=== PATIENT | male | born 1955 | race Caucasian/White ===

== ENCOUNTER → 2023-07-23 06:40 | Outpatient (REF) | payer BC, SELFPAY | LOC: RAD 06:40 | PROVIDERS: ATTENDING PHYSICIAN Internal Medicine Critical Care Medicine; FAMILY PHYSICIAN Family Medicine | DX: J84.9 Interstitial pulmonary disease, unspecified (principal); R91.1 Solitary pulmonary nodule; J44.9 Chronic obstructive pulmonary disease, unspecified | CPT/HCPCS: 71250 ==

== ENCOUNTER → 2023-08-13 07:10 | Outpatient (REF) | payer BC, SELFPAY | LOC: RAD 07:10 | PROVIDERS: ATTENDING PHYSICIAN Family Medicine | DX: Z13.6 Encounter for screening for cardiovascular disorders (principal) | CPT/HCPCS: 76770 ==

== ENCOUNTER → 2023-09-03 07:43 | Outpatient (REF) | payer BC, SELFPAY | LOC: RAD 07:43 | PROVIDERS: ATTENDING PHYSICIAN Internal Medicine Interventional Cardiology | DX: R07.89 Other chest pain (principal) | CPT/HCPCS: 75574; Q9967 ==

== ENCOUNTER 2023-09-12 06:11 | Day surgery (SDC) | payer BC, SELFPAY ==
[2023-09-11 10:06] VITALS: BMI 30.9
[2023-09-11 10:25] LABS: Hematocrit 37.3 % (39.0-52.0); Hemoglobin 11.7 g/dL (13.0-18.0); Mean Corp Hgb Conc. 31.4 g/dL (33.0-37.0); Mean Corpuscular Hgb 25.1 pg (27.0-31.0); Mean Corpuscular Volume 79.9 fL (80.0-94.0); Mean Platelet Volume 10.1 fL (7.4-10.4); Platelet Count 228 10^3/uL (130-400); Red Blood Cell Count 4.67 10^6/uL (4.70-6.10); Red Cell Dist. Width 16.9 % (11.5-14.5); White Blood Cell Count 11.5 10^3/uL (4.8-10.8)
[2023-09-11 10:52] LABS: INR 0.95; PT 12.7 Sec (11.4-14.6)
[2023-09-11 10:53] LABS: APTT 28.1 Sec (23.4-35.0)
[2023-09-11 11:28] LABS: Blood Urea Nitrogen 15 mg/dl (9-20); Calcium 8.7 mg/dl (8.4-10.2); Carbon Dioxide 21 mmol/L (22-30); Chloride 108 mmol/L (98-107); Estimated Creatinine Clearance > 125 ml/min; Glucose 180 mg/dl (70-99); Potassium 4.3 mmol/L (3.5-5.1); Sodium 139 mmol/L (135-145); eGFR > 60.00
[2023-09-12] VITALS (10 sets, daily range): BP systolic 109–131; BP diastolic 59–76; BMI 30.8; BMI 30.9
[2023-09-12 07:51] LABS: Glucose - Point of Care 198 mg/dl (70-99)
[2023-09-12 09:20] LABS: Glucose - Point of Care 196 mg/dl (70-99)
== END 2023-09-12 11:20 | disposition home or self-care (01) ==
LOC: GI 06:11
PROVIDERS: ATTENDING PHYSICIAN Internal Medicine Critical Care Medicine; FAMILY PHYSICIAN Family Medicine; OTHER PHYSICIAN Internal Medicine Interventional Cardiology
DX: C34.11 Malignant neoplasm of upper lobe, right bronchus or lung (principal); R91.8 Other nonspecific abnormal finding of lung field; R91.1 Solitary pulmonary nodule
CPT/HCPCS: 31629; 31627; 31623; 31624; 31654; 31899; 88172; 88173; 88305; 36415; 71045; 76000; 80048; 82962; 85027; 85610; 85730; 88112; 88333; 88341; 88342; 94640; C1887

== ENCOUNTER → 2023-10-01 11:04 | Outpatient (REF) | payer BC, SELFPAY | LOC: MRI 3T 11:04 | PROVIDERS: ATTENDING PHYSICIAN Internal Medicine Critical Care Medicine; FAMILY PHYSICIAN Family Medicine; REFERRING PHYSICIAN Internal Medicine Hematology & Oncology | DX: C80.1 Malignant (primary) neoplasm, unspecified (principal) | CPT/HCPCS: 70553; A9575 ==

== ENCOUNTER → 2023-10-17 08:22 | Outpatient (REF) | payer BC, MEDICARE, OTHER, SELFPAY ==
[2023-10-17 08:38] VITALS: BP 133/71; BP_SYST 82
[2023-10-17 08:51] LABS: Glucose - Point of Care 204 mg/dl (70-99)
[2023-10-17] MEDS: ANCEF 10 IV (09:35)
[2023-10-17 10:25] VITALS: BP 112/69; BP_SYST 76
[2023-10-17 10:40] VITALS: BP 109/64; BP_SYST 75
== END ==
LOC: RADI 08:22
PROVIDERS: ATTENDING PHYSICIAN Internal Medicine Hematology & Oncology; FAMILY PHYSICIAN Family Medicine
DX: C34.11 Malignant neoplasm of upper lobe, right bronchus or lung (principal)
CPT/HCPCS: 36561; 76937; 77001; 82962; 99152; 99153; C1788

== ENCOUNTER → 2023-10-21 13:42 | Outpatient (REF) | payer BC, MEDICARE, OTHER, SELFPAY ==
[2023-10-21 09:53] LABS: % Basophils 0.3 % (0-2); % Eosinophils 1.7 % (0-6); % Immature Granulocytes 0.7 % (0-0.5); % Lymphocytes 22.2 % (20.5-51.1); % Neutrophils 68.1 % (42.2-75.2); Absolute Eosinophils 0.2 10^3/uL (0-0.7); Absolute Immature Granulocytes 0.1 10^3/uL (0-0.05); Absolute Lymphocytes 1.9 10^3/uL (1.2-3.4); Absolute Monocytes 0.6 10^3/uL (0.1-0.6); Absolute Neutrophils 5.9 10^3/uL (1.4-6.5); Hemoglobin 11.5 g/dL (13.0-18.0); Mean Corp Hgb Conc. 31.9 g/dL (33.0-37.0); Mean Corpuscular Hgb 25.9 pg (27.0-31.0); Mean Corpuscular Volume 81.1 fL (80.0-94.0); Platelet Count 216 10^3/uL (130-400); Red Blood Cell Count 4.44 10^6/uL (4.70-6.10); Red Cell Dist. Width 16.8 % (11.5-14.5); White Blood Cell Count 8.6 10^3/uL (4.8-10.8)
[2023-10-21 10:36] LABS: ALT (SGPT) 16 U/L (0-50); AST (SGOT) 19 U/L (17-59); Albumin 3.9 g/dl (3.5-5.0); Alkaline Phosphatase 63 U/L (38-126); Blood Urea Nitrogen 14 mg/dl (9-20); Calcium 8.2 mg/dl (8.4-10.2); Carbon Dioxide 24 mmol/L (22-30); Chloride 106 mmol/L (98-107); Glucose 245 mg/dl (70-99); Potassium 4.2 mmol/L (3.5-5.1); Sodium 142 mmol/L (135-145); Total Protein 6.7 g/dl (6.3-8.2); eGFR > 60.00
== END ==
LOC: OIDL 13:42
PROVIDERS: ATTENDING PHYSICIAN Internal Medicine Hematology & Oncology
DX: C34.11 Malignant neoplasm of upper lobe, right bronchus or lung (principal)
CPT/HCPCS: 80053; 85025

== ENCOUNTER 2023-11-10 20:41 | Inpatient (IN) | payer BC, MEDICARE, SELFPAY ==
[2023-11-10 14:17] VITALS: BP 134/76
--- NOTE | 2023-11-10 16:47 | ED.GENMED ---
History of Present Illness
General
Chief Complaint: Abnormal Lab Value
Source: patient
Exam Limitations: none
Time Seen by Provider: 11/10/23 16:28
Nursing documentation reviewed up to this point in time: agreed with
History of Present Illness
History of Present Illness:
Patient to ED due to abnormal labs. Had outpatient labs this AM. Calcium 6.2, creat 2.0. Currently receiving chemo and radiation for lung CA diagnosed 08/09. Follows with Dr. Duffy. Last chemo was 2-3 weeks ago. Reports recent muscle spasms to
neck and right arm. No other complaints. Brought to ED by friend for eval.
Past History
Past History
ED Past Medical History: CVA (thyroid, lung), HTN, Hypercholesterolemia and NIDDM
Social History
Tobacco: Smoker
Alcohol: Occasional
Personal: Single
Review of Systems
Review of Systems
Allergies reviewed?: Yes
All Other Systems: ROS reviewed and negative except as documented in HPI and ROS
Constitutional: Reports no symptoms
EENT: Reports no symptoms
Respiratory: Reports no symptoms
Cardiac: Reports no symptoms
ABD/GI: Reports no symptoms
: Reports no symptoms
Musculoskeletal: Reports other (muscle spasms to back, right arm)
Skin: Reports no symptoms
Neurological: Reports no symptoms
Psychiatric: Reports no symptoms
Phy Exam
General Physical Exam
General Presentation: well appearing and no apparent distress
General age: appears stated age
General Skin: warm and dry
General Habitus: normal
General Mental: alert
Cardiovascular Exam
Cardiovascular Exam: regular rate/rhythm
Musculoskeletal Exam
Musculoskeletal Exam: full ROM and neuro vasc intact
Skin Exam
Skin Exam: normal color, warm/dry and no rash
Psychiatric Exam
Psychiatric Exam: normal mood/affect
Course
Orders/Labs/Results
Orders:
Orders
11/10/23 Breakfast
Cholesterol Lowering
At Your Request: Full Participation
Does patient need a safe tray?: No
Cholesterol Lowering: Sodium, 2 Gram
11/10/23 16:42
Add On- LAB Urgent
Tests Added?: magnesium
11/10/23 16:43
Bladder Scan- Treatment ONCE
0.9% Sodium Chloride 1000 ml [Nss] 1,000 ml IV BOLUS
11/10/23 16:49
Renal Only US [US Renal Only W/O Bladder] Urgent
Comment:
Reason For Exam: MEHREEN
11/10/23 16:51
Electrocardiogram (*1) Urgent
Reason for Study: Other
Other Reason for Exam: hypocalcemia
EKG- Treatment ONCE
11/10/23 17:00
Calcium Gluconate 2 gram/100mL [Calcium Gluconate] 2 gram in 100 ml IV ONCE
11/10/23 20:05
Admit/Transfer Patient As Directed
Co-Sign Provider:
Level of Care: Inpatient admission
Assign to:: Telemetry
Physician / Group: [email or web address]
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
Reason for Telemetry: Other
Other Reason for Telemetry: hypocalcemia
Date to Stop Telemetry: 11/12/23
Time to Stop Telemetry: 11:00
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
Expected length of stay greater than two midnights?: Yes
ELOS- Estimated Length of Stay in days: 3
I certify the patient meets the requirements for IP care: Yes
11/10/23 20:12
Code Status As Directed
Resuscitation Status: Full Code
11/10/23 21:59
0.9% Sodium Chloride 1000 ml [Nss] 1,000 ml IV 80 mls/hr
Bisacodyl [Dulcolax] 10 mg RECTAL [id number] PRN
Docusate W/Senna [Senokot-S] 1 tablet PO BIDPRN PRN
Polyethylene Glycol Powder [Miralax] 17 grams PO DAILYPRN PRN
11/10/23 21:59
Activity As Directed
Activity Level: With Assistance
Intake/ Output As Directed
Frequency: Per unit guidelines
Vital Signs As Directed
Frequency: Per unit guidelines
Weight As Directed
Frequency: Daily
Physical Therapy Consult [Pt Eval And Treat] Routine
Activity Level: With Assistance
DX Deep Vein Thrombosis Video Routine
11/11/23 06:00
Complete Blood Count/No Diff IN AM
Comprehensive Metabolic Panel IN AM
Intact PTH Includes Calcium IN AM
Ionized Calcium IN AM
Magnesium IN AM
TSH IN AM
11/11/23 08:00
Heparin 5,000 units SC Q12
11/12/23 11:00
DC Protocol for Telemetry ONCE
Vital Signs
Initial and Last Documented VS:
Initial Vital Signs
Temp Pulse Resp BP Pulse Ox
97.8 F 85 18 134/76 94
11/10/23 14:17 11/10/23 14:17 11/10/23 14:17 11/10/23 14:17 11/10/23 14:17
Last Documented Vital Signs
Temp Pulse Resp BP Pulse Ox
97.8 F 92 22 138/76 93
11/10/23 22:11 11/10/23 22:11 11/10/23 22:11 11/10/23 22:11 11/10/23 22:11
*Critical Care Note
Total Time (30-74mins, 75-104mins- exclusive of procedures): Not Applicable
Update Note
Update Note:
Patient to ED at request of Dr. Duffy for abnormal labs. Reviewed results with patient. Calcium 6.2, Creat 2.0, anemia. Will give 2g calcium gluconate now. Renal US pending. Will admit to hospitalists service.
ED Attending Note
-
Portions of this chart may have been created with voice recognition software.� Occasional wrong word or��sound alike� substitutions may have occurred due to the inherent limitations of voice recognition software.
Discharge Plan
Departure
Patient Disposition: Admit
Date of Disposition: 11/10/23
Time of Disposition: 19:28
Presentation/result/management discussed w/ accepting MD/DO: Hospitalist
Patient with high blood pressure during this ER visit?: No
Discharge Problem:
Hypocalcemia, MEHREEN (acute kidney injury)
Interventions
Interventions:
*Risk Screen - Suicide Last Done: 11/10/23 18:49
*General Assessment Last Done: 11/10/23 18:49
*Neglect/Abuse Screening Last Done: 11/10/23 18:49
ED- Fall Risk Assessment Last Done: 11/10/23 20:42
*ED COVID-19 Vaccine History Last Done: 11/10/23 18:19
*Nursing Disposition Last Done: 11/10/23 22:00
Discharge Date and Time
Discharge Date/Time: 11/10/23 22:00
[2023-11-10] MEDS: CALCIUM GLUCONATE 100 IV (17:01)
[2023-11-10] MEDS: NSS 1000 IV ×2 (17:08→22:09)
[2023-11-10 17:12] VITALS: BP 106/89
--- NOTE | 2023-11-10 19:59 | HPS.HSE ---
Family Physician
-
Family Physician: Waylon Lnodono
Chief Complaint
-
sent to ER due to abn Labs
History of Present Illness
68M [facility] friend for eval. HX Primary small cell carcinoma of right lung, Postoperative hypothyroidism, HX postsurgical hypocalcemia , Hypocalcemia, Vit D deficiency , NIDDM sent ER by Dr Duffy for abn OP labs: Calcium 6.2, creat 2.0.
Severe hypocalcemia
MEHREEN
Currently receiving chemo and XRT for lung CA diagnosed 08/09.
F/U Dr Duffy
ROS:
Reports recent muscle spasms to neck and right arm.
Medical History
Past Medical History
Past Medical History: Reports Other
Additional Past Medical History:
Hypocalcemia
Primary small cell carcinoma of right lung
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
Interstitial lung disease
History of tobacco abuse
Right middle lobe pulmonary nodule
History of thyroid cancer
Postoperative hypothyroidism
Postsurgical hypocalcemia
Osteopenia
Type 2 diabetes mellitus with hyperglycemia, without long-term current use of insulin
Vitamin D deficiency
Metabolic bone disease
Obesity (BMI 30.0-34.9)
Essential (primary) hypertension
Hyperlipidemia,
Hiatal hernia
Past Surgical History: Reports Orthopedic (Status post arthroscopy of left shoulder ) and Other (tyhroidectomy )
Social History
Tobacco: Smoker
Alcohol: Occasional
Personal: Single
Family History
Family History: Cancer (lung )
Allergies / Home Medications
Allergies reflects when Allergies were last updated in [employer].
Home Medications with original date entered in [employer]
Allergy/Medication List:
Allergies
Allergy/AdvReac Type Severity Reaction Status Date / Time
No Known Allergies Allergy Verified 11/10/23 14:19
Home Medications
calcium carbonate 1,200 mg PO DAILY 03/25/19
empagliflozin 10 mg tablet (Jardiance) 25 mg PO DAILY 03/25/19
levothyroxine 150 mcg tablet 150 mcg PO DAILY 03/25/19
lisinopril 5 mg tablet 5 mg PO QPM 03/25/19
pantoprazole 40 mg tablet,delayed release 40 mg PO DAILY 03/25/19
saw palmetto 450 mg capsule 900 mg PO DAILY 03/25/19
sitagliptin phosphate 50 mg-metformin 1,000 mg tablet (Janumet) 1 ea PO BID 03/25/19
Probiotic 1 dose PO DAILY 09/09/23
aspirin 81 mg capsule 81 mg PO DAILY 09/09/23
isosorbide mononitrate 10 mg tablet 30 mg PO Daily 09/09/23
semaglutide 0.25 mg or 0.5 mg (2 mg/3 mL) subcutaneous pen injector (Ozempic) 0.25 mg SC QWEEK 09/09/23
tiotropium bromide 1.25 mcg/actuation mist for inhalation (Spiriva Respimat) 2 puff inhalation DAILY 09/09/23
atorvastatin 80 mg tablet 80 mg PO QPM 10/17/23
Review of Systems
-
Constitutional: Reports No Symptoms
EENT: Reports No Symptoms
Respiratory: Reports No Symptoms
Cardiac: Reports No Symptoms
Abdomen/GI: Reports No Symptoms
: Reports No Symptoms
Musculoskeletal: Reports Other (muscl spasm of neck and Lt arm )
Skin: Reports No Symptoms
Neurological: Reports No Symptoms
Endocrine: Reports No Symptoms
Hematologic/Lymphatic: Reports No Symptoms
Psych: Reports No Symptoms
Physical Exam
Vital Signs
Vital Signs
Temp Pulse Resp BP Pulse Ox
97.8 F 73 15 106/89 95
11/10/23 14:17 11/10/23 18:15 11/10/23 17:15 11/10/23 17:12 11/10/23 18:15
Physical Exam
General: Well Developed, Well Nourished and No Apparent Distress
HEENT: NormoCephalic, Moist mucous membranes and Atraumatic
Respiratory: Clear and Other (Rt chest PORT + , non tender )
Cardiac: S1/S2 and Regular Rhythm; No Murmur or Rub
GI: Soft, Non Tender, Non Distended and Normal Bowel Sounds; No Organomegaly
Rectal: Deferred by Provider
Musculoskeletal: No Clubbing, No Cyanosis and No Edema
Skin: No Rash
Neuro: Nonfocal/grossly intact
Psych: Anxious
Data Reviewed
-
Lab Data: Labs Reviewed by me
Old Records: Reviewed
Impression/Plan
-
Reviewed VS:
Vital Signs
Temp Pulse Resp BP Pulse Ox
97.8 F 73 15 106/89 95
11/10/23 14:17 11/10/23 18:15 11/10/23 17:15 11/10/23 17:12 11/10/23 18:15
Data
WCC 3.2
hgb 9.9 - baseline is 11s
nl Plt
BUN 34
Cr 2. 0 was 0.7 on 10/21/23
Ca 8.2 --> 6.2
Pending Mg
Albumin 4
11/10/23 Renal US
Unremarkable renal ultrasound, as detailed above
No prior hospitalist admission:
ASSESSMENT & PLAN
Pending Rx reconciliation
Severe hypocalcemia suspect symptomatic muscle spasms to neck and right arm
Nl albumin
HX prior hypocalcemia
HX Vit D deficiency
- s/p IV Calcium 2 gm
- cont BAT BOY/GIRL Ca carbonate 1200mg daily
- Renal consult
MEHREEN - ? chemo and XRT related
Unremarkable renal US
- Held Jardiance , Lisinopril , Ozempic , Janumet
- IV NS
- Trend Cr
S/P CAROL to L3/4 today for LBP
- PT/OT
Primary small cell carcinoma of right lung
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
- currently receiving Chemo and XRT
- Onco consult
Mild leucopenia and anemia due to chemo
- trend CBC
DVT Px: SQH
Code: Full
IP TLM
[2023-11-10 20:34] VITALS: BP 135/64
[2023-11-10 20:42] VITALS: BMI 31.9
[2023-11-10 22:11] VITALS: BP 138/76; BMI 31.9
--- NOTE | 2023-11-10 22:49 | PTCARENOTE ---
Pt arrived to floor via stretcher from the ED. Pt able to ambulate from stretcher into room without difficulty. Pt stable on feet. Denies falls or any use of assistive devices. Pt AAOx3. HR in the 80's in NSR on the monitor. POX 93% on RA. Lungs dec
@ bases. + bowel, round abd. Palpable peripheral pulses present. Pale skin. Bandaid to lower back, pt reports epidural injection earlier today. pt settled in bed per comfort. Right SQ port now infusing NSS@80ml/hr as ordered. Call tyson in reach.
Will continue to monitor.
[2023-11-10 23:11] LABS: Glucose - Point of Care 443 mg/dl (70-99)
[2023-11-10 23:46] LABS: Glucose 392 mg/dl (70-99)
--- NOTE | 2023-11-11 00:35 | PTCARENOTE ---
Glucose elevated. Antony KAHN notified. Orders obtained. See MAR. Will continue to monitor.
[2023-11-11] MEDS: NOVOLOG FLEXPEN 8 UNITS SC (00:37)
[2023-11-11 02:49] LABS: Glucose - Point of Care 258 mg/dl (70-99)
[2023-11-11 03:06] VITALS: BP 140/75
[2023-11-11 06:00] VITALS: BMI 31.2
[2023-11-11 06:08] LABS: Hematocrit 26.2 % (39.0-52.0); Hemoglobin 8.8 g/dL (13.0-18.0); Mean Corp Hgb Conc. 33.6 g/dL (33.0-37.0); Mean Corpuscular Hgb 25.6 pg (27.0-31.0); Mean Corpuscular Volume 76.2 fL (80.0-94.0); Mean Platelet Volume 9.3 fL (7.4-10.4); Platelet Count 362 10^3/uL (130-400); Red Blood Cell Count 3.44 10^6/uL (4.70-6.10); Red Cell Dist. Width 17.1 % (11.5-14.5); White Blood Cell Count 4.7 10^3/uL (4.8-10.8)
[2023-11-11 06:13] LABS: Ionized Calcium 0.74 mMOL/L (1.15-1.33)
[2023-11-11 06:48] LABS: ALT (SGPT) 13 U/L (0-50); AST (SGOT) 18 U/L (17-59); Albumin 3.7 g/dl (3.5-5.0); Alkaline Phosphatase 95 U/L (38-126); Blood Urea Nitrogen 37 mg/dl (9-20); Calcium 5.9 mg/dl (8.4-10.2); Carbon Dioxide 22 mmol/L (22-30); Chloride 101 mmol/L (98-107); Estimated Creatinine Clearance 57 ml/min; Glucose 190 mg/dl (70-99); Magnesium 1.1 mg/dl (1.6-2.3); Potassium 4.2 mmol/L (3.5-5.1); Sodium 135 mmol/L (135-145); Total Bilirubin 0.7 mg/dl (0.2-1.3); Total Protein 6.4 g/dl (6.3-8.2); eGFR 51.03
[2023-11-11 07:00] LABS: TSH 4.16 uIU/ml (0.47-4.68)
[2023-11-11 07:17] LABS: Glucose - Point of Care 186 mg/dl (70-99)
[2023-11-11 07:29] LABS: Hepatitis C Antibody Negative (Negative)
[2023-11-11 07:32] VITALS: BP 139/86
[2023-11-11] MEDS: NOVOLOG FLEXPEN-LOW RESISTANCE 1 UNITS SC (08:10)
[2023-11-11] MEDS: HEPARIN 5000 UNITS SC ×2 (08:11→20:34)
[2023-11-11 09:11] LABS: Glycohemoglobin (HgbA1c) 11.1 % (4.0-5.6)
--- NOTE | 2023-11-11 09:40 | PTOTSP ---
Received order for PT from the ED and reviewed chart. S/w RN who reports pt is independent in his room. S/w pt who feels he does not need PT and has no concerns about discharge. Agreed to sign off at this time.
[2023-11-11] MEDS: NSS 1000 IV ×2 (10:27→23:03)
[2023-11-11] MEDS: MAGNESIUM SULFATE 50 IV ×2 (10:28→14:54)
[2023-11-11] MEDS: CALCIUM GLUCONATE 100 IV (10:36)
[2023-11-11 11:33] LABS: Glucose - Point of Care 233 mg/dl (70-99)
[2023-11-11] MEDS: NOVOLOG FLEXPEN-LOW RESISTANCE 2 UNITS SC ×2 (11:35→16:31)
[2023-11-11 11:42] VITALS: BP 131/72
[2023-11-11 12:13] LABS: Vitamin D, 25-OH*** 28.1 ng/mL (30-80)
--- NOTE | 2023-11-11 12:20 | CM ---
Met with pt at bedside
Pt lives alone in a ranch style home, 1 step to enter
Describes self as independent - driving, does own cleaning, shopping, meal prep
DME - none
SNF/HH - denies past hx
Has ride at d/c
PCP - Dr Waylon Londono
Pharm - [facility]
CM will follow for d/c needs
Plan - anticipate home no needs
--- NOTE | 2023-11-11 12:51 | CON.ONC ---
Impression
Impression
MEHREEN, hypomagnesemia and hypocalcemia - from cisplatin chemotherapy
limited stage small cell lung cancer, on radiation and chemo (cycle #1 of cisplatin and etoposide given 10/21 through 10/24/23)
Plan
Plan
Repletion of magnesium should aid repletion of calcium
Monitor labs bid
Will start oral magnesium (extended release to reduce renal loss and decrease GI side effects). I also sent a Rx to his [facility].
Oral calcium supplementation, he was taking #1 BID prior to admission, started on Oscal QID in hospital
Will monitor labs weekly - lab slip provided to patient
Chemo to be postponed to next week - he will stop by office after discharge to reschedule
Ideally, discharge early tomorrow morning if am labs improved, so that radiation can continue on schedule
Patient History
History of Present Illness
68 yo M with limited stage small cell lung cancer, currently on RT and cis/etoposide chemotherapy (cycle #1 given 10/21 -10/24/23). He was sent to ER yesterday after outpatient labs showed hypocalcemia, hypomagnesemia and bump in creatinine to 2.0. He
was given IV calcium in the ER, but calcium did not improve. Magnesium repletion was started this morning. Creatinine is improving with IVF. He's eager to go home, to resume radiation AGUILAR. He feels fairly well, believed he was tolerating chemo
well, though noted back spasms during RT, suspected due to low calcium. He takes calcium supplements BID at home, dose unknown (450mg?).
Past-Medical/Surgical History
PMH: lung cancer as per the HPI, Black�esophagus� COPD Degenerative�disc�disease Hypertension� Interstitial�lung�disease Obesity Osteopenia History�of�thyroid�carcinoma�2010 Diabetes GERD Diverticulosis� Hyperlipidemia. Halal�hernia Thyroid�cancer
Surgical�History thyroidectomy�2008 left�shoulder�Rotator�cuff�2020
Social�History Former�Smoker.�Packs�per�day�2.�Approximate�years�smoked�27.�Year�Quit�200. Current�alcohol�user.�Patient�reports�an�average�of�>1�drinks�per�week. Denies�any�illicit�drug�use. Occupational�Status:�Former���Floor�[employer]��[employer]
Patient�has�not�had�any�occupational�exposure. Marital�Status:�Patient�is�single
Family�Medical�History Father���lung�cancer Mother���diabetes
Patient Medication
�Medication �Instructions �Recorded �Confirmed �Last Taken �Type
calcium carbonate 1,200 mg PO DAILY 03/25/19 10/17/23 10/17/23 History
empagliflozin 10 mg tablet 25 mg PO DAILY 03/25/19 10/17/23 10/17/23 History
(Jardiance)
levothyroxine 150 mcg tablet 150 mcg PO DAILY 03/25/19 10/17/23 10/17/23 History
lisinopril 5 mg tablet 5 mg PO QPM 03/25/19 10/17/23 10/16/23 History
pantoprazole 40 mg tablet,delayed 40 mg PO DAILY 03/25/19 10/17/23 10/17/23 History
release
saw palmetto 450 mg capsule 900 mg PO DAILY 03/25/19 10/17/23 10/17/23 History
sitagliptin phosphate 50 1 ea PO BID 03/25/19 10/17/23 10/17/23 History
mg-metformin 1,000 mg tablet
(Janumet)
Probiotic 1 dose PO DAILY 09/09/23 10/17/23 10/17/23 History
aspirin 81 mg capsule 81 mg PO DAILY 09/09/23 10/17/23 10/17/23 History
isosorbide mononitrate 10 mg tablet 30 mg PO Daily 09/09/23 10/17/23 10/17/23 History
semaglutide 0.25 mg or 0.5 mg (2 0.25 mg SC QWEEK 09/09/23 10/17/23 10/10/23 History
mg/3 mL) subcutaneous pen injector
(Ozempic)
tiotropium bromide 1.25 2 puff inhalation DAILY 09/09/23 10/17/23 10/17/23 History
mcg/actuation mist for inhalation
(Spiriva Respimat)
atorvastatin 80 mg tablet 80 mg PO QPM 10/17/23 10/17/23 10/16/23 History
Active Medications
Generic Name Dose Route Start Last Admin
Trade Name Freq PRN Reason Stop Dose Admin
Bisacodyl 10 mg 11/10/23 21:59
Bisacodyl 10 Mg Rectal Suppository RECTAL 12/08/23 21:58
[id number] PRN
constipation
Dextrose 12.5 grams 11/11/23 00:07
Dextrose 50% (0.5 Grams/Ml) 50 Ml Syringe IV 12/09/23 00:06
[id number] PRN
hypoglycemia
Protocol
Glucagon 1 mg 11/11/23 00:07
Glucagon 1 Mg Vial IM 12/09/23 00:06
PRN PRN
hypoglycemia
Protocol
Heparin Sodium 5,000 units 11/11/23 08:00 11/11/23 08:11
Heparin 5,000 Units/Ml 1 Ml Vial SC 12/09/23 07:59 5,000 units
Q12 MARZENA Administration
Heparin Sodium (Porcine) 500 unit 11/11/23 08:30
Heparin Flush Pf (100 Unit/Ml) 5 Ml Syringe IV 12/09/23 08:29
PRN PRN
SQ PORT
Sodium Chloride 1,000 mls @ 80 mls/hr 11/10/23 21:59 11/11/23 10:27
Nss IV 1,000 mls
.[id number] MARZENA Administration
Insulin Aspart 0 units 11/11/23 07:30 11/11/23 11:35
Insulin Aspart Low Resistance 300 Units/3 Ml Pen.Injctr SC 12/09/23 07:29 2 units
AC MARZENA Administration
Protocol
Polyethylene Glycol 17 grams 11/10/23 21:59
Polyethylene Glycol Powder 17 Grams Packet PO 12/08/23 21:58
DAILYPRN PRN
constipation
Senna/Docusate Sodium 1 tablet 11/10/23 21:59
Docusate W/Senna (Jackie-Colace) Tablet PO 12/08/23 21:58
BIDPRN PRN
constipation
Sodium Chloride 0 flush 11/10/23 22:00
Sodium Chloride 0.9% (Flush) Syringe IV 12/08/23 21:59
PER PROTOCOL MARZENA
Review of Systems
-
All Other Systems: Not reviewed unless documented
Physical Exam
-
General: Well Developed, Well Nourished, No Apparent Distress and Comfortable
HEENT: Moist Mucous Membranes
Skin: Warm and Dry
Psych: Calm and Intact Judgement/Insight
Labs
Lab Results
WBC 4.7 10^3/uL (4.8-10.8) L 11/11/23 05:54
RBC 3.44 10^6/uL (4.70-6.10) L 11/11/23 05:54
Hgb 8.8 g/dL (13.0-18.0) L 11/11/23 05:54
Hct 26.2 % (39.0-52.0) L 11/11/23 05:54
MCV 76.2 fL (80.0-94.0) L 11/11/23 05:54
MCH 25.6 pg (27.0-31.0) L 11/11/23 05:54
MCHC 33.6 g/dL (33.0-37.0) 11/11/23 05:54
RDW 17.1 % (11.5-14.5) H 11/11/23 05:54
Plt Count 362 10^3/uL (130-400) 11/11/23 05:54
MPV 9.3 fL (7.4-10.4) 11/11/23 05:54
Creatinine 1.5 mg/dL (0.7-1.3) H 11/11/23 05:54
Vital Signs
Vital Signs
Temp Pulse Resp BP Pulse Ox
97.9 F 70 16 131/72 98
11/11/23 11:42 11/11/23 11:42 11/11/23 11:42 11/11/23 11:42 11/11/23 11:42
[2023-11-11] MEDS: MAG-TAB SR 84 MG PO ×2 (13:12→20:34)
--- NOTE | 2023-11-11 13:12 | W.CON.NEPH ---
Consultation
-
Date/Time Consultation Requested: November 11, 2023 10 AM
Date/Time Consultation Performed: November 11, 2023 1 PM
Requesting Provider: Dr. Padilla
Performing Provider: Dr. Walker
Reason for Consultation: Hypocalcemia, MEHREEN
Medical History
-
Chief Complaint: Hypocalcemia
History of Present Illness:
This is a 68-year-old gentleman with diabetes mellitus type 2 on Ozempic, Jardiance, Janumet with most recent A1c of 11.1, hypertension on a multidrug regimen, small cell lung cancer diagnosed in July 2023. He has started radiation therapy in October
and has 4 treatments left. He also started chemotherapy 3 weeks ago with cisplatin and etoposide. He had no issues with the chemotherapy. However blood work drawn this week showed hypocalcemia and hypomagnesemia and he was admitted for further
management. He does note that he has been losing hair since chemotherapy. He does have a history of thyroid cancer status post thyroidectomy in 2008 at [facility] has always been taking calcium supplement since then. He says that
he has not required vitamin D supplements previously. He has no recollection as to whether or not his parathyroid glands were affected in the thyroidectomy.
Past Medical History
Hypertension
Diabetes mellitus type 2
Small cell lung cancer metastatic to lymph node
Hypertension
Thyroid cancer status post thyroidectomy
Interstitial lung disease
Hiatal hernia
Left shoulder arthroscopy
Osteopenia
Social History
Tobacco: Smoker
Alcohol: Occasional
Family History
No CKD
Allergies / Home Medications
Allergy/AdvReac Type Severity Reaction Status Date / Time
No Known Allergies Allergy Verified 11/10/23 14:19
�Medication �Instructions �Recorded �Confirmed �Type
calcium carbonate 1,200 mg PO QPM Electrolyte 03/25/19 11/11/23 History
Repletion
levothyroxine 150 mcg tablet 150 mcg PO DAILY@0600 Thyroid 03/25/19 11/11/23 History
lisinopril 5 mg tablet 5 mg PO QPM Blood Pressure 03/25/19 11/11/23 History
pantoprazole 40 mg tablet,delayed 40 mg PO DAILY Gastrointestinal 03/25/19 11/11/23 History
release Issue
saw palmetto 450 mg capsule 900 mg PO DAILY Urinary Issue 03/25/19 11/11/23 History
sitagliptin phosphate 50 1 ea PO BID Diabetes 03/25/19 11/11/23 History
mg-metformin 1,000 mg tablet
(Janumet)
Probiotic 1 dose PO DAILY probiotic 09/09/23 11/11/23 History
aspirin 81 mg capsule 81 mg PO DAILY Blood Clot 09/09/23 11/11/23 History
Prevention/Tx
semaglutide 0.25 mg or 0.5 mg (2 0.25 mg SC FR Diabetes 09/09/23 11/11/23 History
mg/3 mL) subcutaneous pen injector
(Ozempic)
tiotropium bromide 1.25 2 puff inhalation DAILY 09/09/23 11/11/23 History
mcg/actuation mist for inhalation Lung/Breathing Issues
(Spiriva Respimat)
atorvastatin 80 mg tablet 80 mg PO QPM High Cholesterol 10/17/23 11/11/23 History
empagliflozin 25 mg tablet 25 mg PO DAILY Diabetes 11/11/23 11/11/23 History
(Jardiance)
isosorbide mononitrate 30 mg 30 mg PO DAILY Heart 11/11/23 11/11/23 History
tablet,extended release 24 hr Disease/Condition
Review of Systems
-
Some back cramps, hair loss
All other systems: Negative unless noted
Physical Exam
Vital Signs
Vital Signs
Temp Pulse Resp BP Pulse Ox
97.9 F 70 16 131/72 98
11/11/23 11:42 11/11/23 11:42 11/11/23 11:42 11/11/23 11:42 11/11/23 11:42
Lab Results
WBC 4.7 10^3/uL (4.8-10.8) L 11/11/23 05:54
RBC 3.44 10^6/uL (4.70-6.10) L 11/11/23 05:54
Hgb 8.8 g/dL (13.0-18.0) L 11/11/23 05:54
Hct 26.2 % (39.0-52.0) L 11/11/23 05:54
Plt Count 362 10^3/uL (130-400) 11/11/23 05:54
Sodium 135 mmol/L (135-145) 11/11/23 05:54
Potassium 4.2 mmol/L (3.5-5.1) 11/11/23 05:54
Chloride 101 mmol/L (98-107) 11/11/23 05:54
Carbon Dioxide 22 mmol/L (22-30) 11/11/23 05:54
BUN 37 mg/dl (9-20) H 11/11/23 05:54
Creatinine 1.5 mg/dL (0.7-1.3) H 11/11/23 05:54
eGFR 51.03 11/11/23 05:54
Glucose 190 mg/dl (70-99) H 11/11/23 05:54
Albumin 3.7 g/dl (3.5-5.0) 11/11/23 05:54
Physical Exam
Patient is awake alert oriented and in no distress. Mood and affect were pleasant, insight and judgment were good. Pupils are equal round and reactive to light, extraocular movements are intact, sclera were anicteric. Hearing was normal, ears and
nose are intact. Oropharynx was clear. Neck was supple with trachea midline and no thyromegaly. Heart was regular rate and rhythm without rubs. Lower extremities without edema. Lungs were clear to auscultation bilaterally and with normal
excursion. Abdomen was soft, nontender, with normal active bowel sounds, and no hepatosplenomegaly. Skin was without rash and with normal turgor.
Data Reviewed
-
Ultrasound: Report Reviewed by me (Renal ultrasound on 11/10/2023 shows right kidney 12.1 cm, left kidney 12.1 cm, no hydronephrosis)
Medical Tests (Nuc Med, Echo etc): Image Personally Visualized and interpreted (EKG on 11/10/2019 for evaluation shows normal sinus rhythm)
Labs: Labs Reviewed by me (WBC 4.7, hemoglobin 8.8, platelets 362, sodium 135, potassium 4.2, BUN 37, creatinine 1.5, A1c 11.1, calcium 5.9, magnesium 1.1, vitamin D 28)
Assessment/Plan
-
Assessment
Hypertension
acute kidney injury
Hypocalcemia
Hypomagnesemia
Small cell lung cancer
Plan
Replete calcium
Replete magnesium
Await intact PTH this should be elevated
Oral magnesium as well
Eventual restart of Jardiance will also help hypomagnesemia
Follow BMP
Renal issues likely related to cisplatin exposure
--- NOTE | 2023-11-11 14:20 | W.PN.HOSP.TC ---
Today's Communication/Plan
-
f/u repeat ca/mag check
start oral carlitos and vit D
Assessment / Plan
Assessment / Plan
1. Hypocalcemia
Hypomagnesemia
-Patient denies of having any ongoing paresthesia/spasm. no reported seizure.
-Hypocalcemia/hypomagnesemia felt to be related to cisplatin related renal wasting
-Patient got IV calcium gluconate/magnesium replacement
-Vitamin D level borderline low at 28, PTH level pending
-Repeat electrolyte checks ordered for afternoon
2. MEHREEN
-Recent creatinine of 0.7. Creatinine elevated to 2 in ER
-Hold nephrotoxic medication metformin/Jardiance/lisinopril on hold
-Cisplatin also contributing to renal dysfunction
-Nephrology evaluated
-Creatinine trending down at this point
3. Zqk-pcefriy-qwcnhbyuu diabetes mellitus
-Patient have uncontrolled diabetes with hemoglobin A1c of 11
-Currently oral medication on hold due to renal dysfunction
-Start on IV Lantus and sliding scale insulin
4. Chronic microcytic anemia
-Presumably of chronic disease, defer testing to primary care physician
5. Right lung small cell cancer
-Oncology discussed with radiation oncologist and patient will need to be discharged early in the morning tomorrow for scheduled radiation round
-Patient got first cycle of cisplatin/etoposide from 10/21 to 10/23
6. Vitamin D deficiency
-start on oral replacement Vit d3 50mcg ~ 2000 U/daily
DVT PPX- heparin subq
Full code
Discussed with oncology and nephrology
Anticipated Discharge: 24 - 48 hours
Subjective/Interval History
-
Date of Service: November 11, 2023
denies of having any problems
no reported paresthesia
Objective Data
-
Labs:
Laboratory Results
11/11/23 11/11/23 11/11/23
05:54 14:00 18:00
WBC 4.7 L
Hgb 8.8 L
Hct 26.2 L
Plt Count 362
Sodium 135 Pending
Potassium 4.2 Pending
Chloride 101 Pending
Carbon Dioxide 22 Pending
BUN 37 H Pending
Creatinine 1.5 H Pending
Glucose 190 H Pending
Calcium 5.9 L* Cancelled Pending
Total Bilirubin 0.7
AST 18
ALT 13
Alkaline Phosphatase 95
Vital Signs:
Vital Signs
Temp Pulse Resp BP Pulse Ox
97.9 F 70 16 131/72 98
11/11/23 11:42 11/11/23 11:42 11/11/23 11:42 11/11/23 11:42 11/11/23 11:42
I&O
11/10/23 11/11/23 11/12/23
06:59 06:59 06:59
Intake Total 2079
Balance 2079
Review of Systems
-
Respiratory: Reports No Symptoms
Cardiac: Reports No Symptoms
Abdomen/GI: Reports No Symptoms
Physical Exam
-
General: No Apparent Distress and Comfortable
HEENT: Negative Oxygen
Respiratory: Other (Right chest port-a-cath in place)
Cardiac: Regular Rhythm and S1/S2; Negative Murmur or Rub
GI: Soft, Nontender and Nondistended
Musculoskeletal: No Edema
Neuro: Awake, Alert, Oriented, No Motor Deficits and Nonfocal/Grossly Intact
Psych: Calm
[2023-11-11] MEDS: CALCIUM GLUCONATE 130 MG IV (14:54)
[2023-11-11 15:00] VITALS: BP 130/64
[2023-11-11] MEDS: SPIRIVA RESPIMAT 2.5 MCG INH (15:25)
[2023-11-11] MEDS: VITAMIN D3 (cholecalciferol) 50 MCG PO (16:17)
[2023-11-11 16:22] LABS: Glucose - Point of Care 236 mg/dl (70-99)
[2023-11-11] MEDS: LIPITOR 80 MG PO (17:09)
[2023-11-11] MEDS: OSCAL CAL 500 500 MG PO ×2 (17:09→23:01)
[2023-11-11 19:39] VITALS: BP 156/72
[2023-11-11 20:11] LABS: Albumin 3.6 g/dl (3.5-5.0); Blood Urea Nitrogen 32 mg/dl (9-20); Calcium 7.5 mg/dl (8.4-10.2); Carbon Dioxide 24 mmol/L (22-30); Chloride 97 mmol/L (98-107); Estimated Creatinine Clearance 57 ml/min; Glucose 187 mg/dl (70-99); Phosphorus 5.3 mg/dl (2.5-4.5); Potassium 3.7 mmol/L (3.5-5.1); Sodium 131 mmol/L (135-145); eGFR 51.03
[2023-11-11 21:07] LABS: Glucose - Point of Care 187 mg/dl (70-99)
[2023-11-11 23:19] LABS: Urine Albumin Negative (Neg - Trace); Urine Bilirubin Negative (Negative); Urine Character Clear (Clear); Urine Color Yellow; Urine Glucose 3+ (Negative); Urine Ketone Negative (Negative); Urine Leukocyte Negative (Negative); Urine Nitrite Negative (Negative); Urine Occult Blood Negative (Negative); Urine Urobilinogen Negative (Neg - 1+)
[2023-11-11 23:30] VITALS: BP 145/76
[2023-11-12 00:06] LABS: Intact PTH 39.7 pg/ml (13.6-85.8)
[2023-11-12 03:45] VITALS: BP 155/79
[2023-11-12 06:00] VITALS: BMI 31.1
[2023-11-12] MEDS: SYNTHROID 150 MCG PO (06:09)
[2023-11-12 06:38] LABS: Blood Urea Nitrogen 29 mg/dl (9-20); Calcium 7.8 mg/dl (8.4-10.2); Carbon Dioxide 25 mmol/L (22-30); Chloride 101 mmol/L (98-107); Estimated Creatinine Clearance 57 ml/min; Glucose 135 mg/dl (70-99); Magnesium 1.9 mg/dl (1.6-2.3); Potassium 3.9 mmol/L (3.5-5.1); Sodium 135 mmol/L (135-145); eGFR 51.03
[2023-11-12] MEDS: SPIRIVA RESPIMAT 2.5 MCG 2 PUFF INH (07:21)
--- NOTE | 2023-11-12 07:21 | W.PN.ONC2 ---
Today's Communication / Plan
-
Labs improved. Stable for discharge on oral calcium and magnesium supplementation.
Resume outpatient radiation today
Impression
Impression
MEHREEN, hypomagnesemia and hypocalcemia - from cisplatin chemotherapy
limited stage small cell lung cancer, on radiation and chemo (cycle #1 of cisplatin and etoposide given 10/21 through 10/24/23)
Chemotherapy-induced anemia
Plan
Plan
Labs improved and stable for discharge.
Oral calcium supplementation, he was taking #1 BID prior to admission, started on Oscal QID in hospital
Will monitor labs weekly - lab slip provided to patient
Chemo to be postponed to next week - he will stop by office after discharge to reschedule
Ideally, discharge today so that radiation can continue on schedule
Subjective/Objective
Chief Complaint
ACS Heme Onc
Subjective
Patient offers no complaints. Denies shortness of breath or muscle weakness.
Vital Signs:
Vital Signs
Temp Pulse Resp BP Pulse Ox
98.2 F 70 20 155/79 96
11/12/23 03:45 11/12/23 03:45 11/12/23 03:45 11/12/23 03:45 11/12/23 03:45
Lab Results:
Laboratory Data
WBC 4.7 10^3/uL (4.8-10.8) L 11/11/23 05:54
Hgb 8.8 g/dL (13.0-18.0) L 11/11/23 05:54
Plt Count 362 10^3/uL (130-400) 11/11/23 05:54
eGFR 51.03 11/12/23 05:41
Physical Exam
HEENT: Other (Alopecia); No Jaundice
Cardiology: S1 and S2
Pulmonary: Clear
GI: Soft
Extremities: No C/C/E
[2023-11-12] MEDS: VITAMIN D3 (cholecalciferol) 50 MCG PO (07:37)
[2023-11-12] MEDS: IMDUR (EXTENDED RELEASE) 30 MG PO (07:37)
[2023-11-12] MEDS: OSCAL CAL 500 500 MG PO (07:37)
[2023-11-12] MEDS: MAG-TAB SR 84 MG PO (07:37)
[2023-11-12] MEDS: PROTONIX 40 MG PO (07:37)
[2023-11-12 07:38] VITALS: BP 149/81
[2023-11-12] MEDS: HEPARIN SC (07:38)
[2023-11-12 07:46] LABS: Glucose - Point of Care 168 mg/dl (70-99)
--- NOTE | 2023-11-12 08:29 | W.PN.HOSP.TC ---
Today's Communication/Plan
-
d/c home
Assessment / Plan
Assessment / Plan
1. Hypocalcemia related to cisplatin
Hypomagnesemia
-Patient denies of having any ongoing paresthesia/spasm. no reported seizure.
-Hypocalcemia/hypomagnesemia felt to be related to cisplatin related renal wasting
-Patient got IV calcium gluconate/magnesium replacement
-Vitamin D level borderline low at 28, PTH 40 only
-discharging on increased dose calcium. Starting mag/vit d supplement
2. MEHREEN - Improving
-Recent creatinine of 0.7. Creatinine elevated to 2 in ER
-Lisinopril held at discharge until repeat lab
-Continue masood met/jardiance with caution
-Cisplatin also contributing to renal dysfunction
-Nephrology evaluated
-Discharge cr of 1.5, will need repeat lab in one week and f/u with PCP
3. Lfp-unavxma-ebmgvvelq diabetes mellitus
-Patient have uncontrolled diabetes with hemoglobin A1c of 11
-as above - resume home with monitoring for renal function
-personally would start on insulin with current situation, defer to PCP for further managment.
4. Chronic microcytic anemia
-Presumably of chronic disease, defer testing to primary care physician
5. Right lung small cell cancer
-Oncology discussed with radiation oncologist and patient will need to be discharged early in the morning tomorrow for scheduled radiation round
-Patient got first cycle of cisplatin/etoposide from 10/21 to 10/23
6. Vitamin D deficiency
-start on oral replacement Vit d3 50mcg ~ 2000 U/daily
DVT PPX- heparin subq
Full code
More than 30 minutes spent in discharge including
Final examination of the patient
Summarizing hospital stay
Instructions for continuing care to all relevant caregivers
Preparation of discharge records, prescriptions, and referral forms
Total time spent (in minutes): 40 mins
Anticipated Discharge: Today
Subjective/Interval History
-
Date of Service: November 12, 2023
no acute issues overnight
Objective Data
-
Labs:
Laboratory Results
11/12/23
05:41
Sodium 135
Potassium 3.9
Chloride 101
Carbon Dioxide 25
BUN 29 H
Creatinine 1.5 H
Glucose 135 H
Calcium 7.8 L
Vital Signs:
Vital Signs
Temp Pulse Resp BP Pulse Ox
97.7 F 64 16 149/81 95
11/12/23 07:38 11/12/23 07:38 11/12/23 07:38 11/12/23 07:38 11/12/23 07:38
I&O
11/11/23 11/12/23 11/13/23
06:59 06:59 06:59
Intake Total 2079 2990 / 2990
Balance 2079 2990 / 2990
Review of Systems
-
Respiratory: Reports No Symptoms
Cardiac: Reports No Symptoms
Abdomen/GI: Reports No Symptoms
Physical Exam
-
General: No Apparent Distress and Comfortable
HEENT: Negative Oxygen
Respiratory: Other (Right chest port-a-cath in place)
Cardiac: Regular Rhythm and S1/S2; Negative Murmur or Rub
GI: Soft, Nontender and Nondistended
Musculoskeletal: No Edema
Neuro: Awake, Alert, Oriented, No Motor Deficits and Nonfocal/Grossly Intact
Psych: Calm
[2023-11-12] MEDS: NOVOLOG FLEXPEN-LOW RESISTANCE SC (08:31)
--- NOTE | 2023-11-12 09:31 | PN.CDI ---
CDI
- -
CDI:
Physician Documentation Request
Admit Date: 11/10/23 20:41
Dear Doctor Peterson,
Patient admitted with Hypocalcemia related to cisplatin. MEHREEN is included in progress notes.
Creatine resulted as follows:
Laboratory Tests
11/10/23 11/11/23 11/12/23
08:02 05:54 05:41
Creatinine 2.0 H 1.5 H 1.5 H
Criteria for MEHREEN*
1 Increase in serum creatinine by > or = to 0.3 mg/dL (> or = to 26.5 micromol/L) within 48 hours, OR
2 Increase in serum creatinine to > or = to 1.5 times baseline, which is known or presumed to have occurred within 7 days, OR
3 Urine volume < 0.5 nL/kg/hour for six hours
Based on the above information and the recognized standard for MEHREEN could you please verify this diagnoses is still accurate and reflective of the patient�s condition to ensure quality of the medical record.
Please clarify in the Progress Notes:
�MEHREEN is/was present and is a clinical diagnosis based on (please include this additional support in the medical record)
�After study MEHREEN has been ruled out
�Other
Use of terms such as suspected, likely, concern for, or probable (associated with a specific diagnosis that is being evaluated, monitored, or treated as if it exists) are acceptable and can be coded in the inpatient setting, when documented at the
time of discharge.
Thank you,
Rima Mcgee RN, BSN
CDI Specialist
tiger text
Please use your independent medical judgment in providing your response.
== END 2023-11-12 09:30 | disposition home or self-care (01) | DRG 641 ==
LOC: 3 WEST ACU 20:41
PROVIDERS: Specialist; ADMITTING PHYSICIAN Internal Medicine; ATTENDING PHYSICIAN Hospitalist; CONSULT PHYSICIAN Internal Medicine Hematology & Oncology; CONSULT PHYSICIAN Internal Medicine Medical Oncology; EMERGENCY PHYSICIAN Emergency Medicine; FAMILY PHYSICIAN Family Medicine
DX: E83.51 Hypocalcemia (principal); N17.9 Acute kidney failure, unspecified; C34.91 Malignant neoplasm of unspecified part of right bronchus or lung; C77.9 Secondary and unspecified malignant neoplasm of lymph node, unspecified; T45.1X5A Adverse effect of antineoplastic and immunosuppressive drugs, initial encounter
CPT/HCPCS: 51798; 76775; 80048; 80053; 80069; 81003; 82306; 82330; 82947; 82962; 83036; 83735; 83970; 84443; 85025; 85027; 86803; 93005; 94640; 96361; 96374; 99285

== ENCOUNTER → 2023-11-17 09:25 | Outpatient (REF) | payer BC, MEDICARE, SELFPAY ==
[2023-11-17 10:37] LABS: % Basophils 0.8 % (0-2); % Eosinophils 0.4 % (0-6); % Lymphocytes 10.4 % (20.5-51.1); % Monocytes 7.2 % (1.7-9.3); % Neutrophils 77.2 % (42.2-75.2); Absolute Basophils 0.1 10^3/uL (0-0.2); Absolute Immature Granulocytes 0.4 10^3/uL (0-0.05); Absolute Monocytes 0.7 10^3/uL (0.1-0.6); Absolute Neutrophils 7.7 10^3/uL (1.4-6.5); Hematocrit 33.5 % (39.0-52.0); Hemoglobin 10.5 g/dL (13.0-18.0); Mean Corp Hgb Conc. 31.3 g/dL (33.0-37.0); Mean Corpuscular Hgb 25.3 pg (27.0-31.0); Mean Corpuscular Volume 80.7 fL (80.0-94.0); Mean Platelet Volume 10.1 fL (7.4-10.4); Nucleated Red Blood Cells % 0 % (-); Platelet Count 316 10^3/uL (130-400); Red Blood Cell Count 4.15 10^6/uL (4.70-6.10); Red Cell Dist. Width 18.3 % (11.5-14.5)
[2023-11-17 11:06] LABS: ALT (SGPT) 15 U/L (0-50); AST (SGOT) 20 U/L (17-59); Albumin 4.1 g/dl (3.5-5.0); Alkaline Phosphatase 126 U/L (38-126); Blood Urea Nitrogen 27 mg/dl (9-20); Calcium 7.2 mg/dl (8.4-10.2); Carbon Dioxide 22 mmol/L (22-30); Chloride 100 mmol/L (98-107); Glucose 279 mg/dl (70-99); Magnesium 1.2 mg/dl (1.6-2.3); Phosphorus 5.2 mg/dl (2.5-4.5); Potassium 4.5 mmol/L (3.5-5.1); Sodium 137 mmol/L (135-145); eGFR > 60.00
== END ==
LOC: REG 09:25
PROVIDERS: ATTENDING PHYSICIAN Internal Medicine Hematology & Oncology; FAMILY PHYSICIAN Family Medicine
DX: C34.11 Malignant neoplasm of upper lobe, right bronchus or lung (principal)
CPT/HCPCS: 36415; 80053; 83735; 84100; 85025

== ENCOUNTER → 2023-11-24 09:21 | Outpatient (REF) | payer BC, MEDICARE, SELFPAY ==
[2023-11-24 10:14] LABS: % Basophils 1.5 % (0-2); % Eosinophils 1.2 % (0-6); % Immature Granulocytes 2.5 % (0-0.5); % Lymphocytes 12.5 % (20.5-51.1); % Monocytes 8.7 % (1.7-9.3); % Neutrophils 73.6 % (42.2-75.2); Absolute Basophils 0.1 10^3/uL (0-0.2); Absolute Eosinophils 0.1 10^3/uL (0-0.7); Absolute Immature Granulocytes 0.2 10^3/uL (0-0.05); Absolute Lymphocytes 1.2 10^3/uL (1.2-3.4); Absolute Monocytes 0.8 10^3/uL (0.1-0.6); Absolute Neutrophils 6.9 10^3/uL (1.4-6.5); Hematocrit 31.5 % (39.0-52.0); Hemoglobin 10.4 g/dL (13.0-18.0); Mean Corpuscular Hgb 26.2 pg (27.0-31.0); Mean Corpuscular Volume 79.3 fL (80.0-94.0); Mean Platelet Volume 9.8 fL (7.4-10.4); Nucleated Red Blood Cells % 0 % (-); Platelet Count 229 10^3/uL (130-400); Red Blood Cell Count 3.97 10^6/uL (4.70-6.10); Red Cell Dist. Width 19.7 % (11.5-14.5); White Blood Cell Count 9.3 10^3/uL (4.8-10.8)
[2023-11-24 10:59] LABS: ALT (SGPT) 14 U/L (0-50); AST (SGOT) 17 U/L (17-59); Albumin 4.3 g/dl (3.5-5.0); Alkaline Phosphatase 113 U/L (38-126); Blood Urea Nitrogen 28 mg/dl (9-20); Calcium 8.5 mg/dl (8.4-10.2); Carbon Dioxide 23 mmol/L (22-30); Chloride 99 mmol/L (98-107); Glucose 189 mg/dl (70-99); Magnesium 1.5 mg/dl (1.6-2.3); Phosphorus 5.3 mg/dl (2.5-4.5); Potassium 4.3 mmol/L (3.5-5.1); Sodium 137 mmol/L (135-145); Total Bilirubin 0.9 mg/dl (0.2-1.3); Total Protein 7.1 g/dl (6.3-8.2); eGFR > 60.00
== END ==
LOC: REG 09:21
PROVIDERS: ATTENDING PHYSICIAN Internal Medicine Hematology & Oncology; FAMILY PHYSICIAN Family Medicine
DX: C34.11 Malignant neoplasm of upper lobe, right bronchus or lung (principal)
CPT/HCPCS: 36415; 80053; 83735; 84100; 85025

== ENCOUNTER → 2023-12-01 07:34 | Outpatient (REF) | payer BC, MEDICARE, SELFPAY ==
[2023-12-01 08:45] LABS: Hematocrit 30.3 % (39.0-52.0); Hemoglobin 10.1 g/dL (13.0-18.0); Mean Corp Hgb Conc. 33.3 g/dL (33.0-37.0); Mean Corpuscular Hgb 27.2 pg (27.0-31.0); Mean Corpuscular Volume 81.7 fL (80.0-94.0); Red Blood Cell Count 3.71 10^6/uL (4.70-6.10); Red Cell Dist. Width 20.5 % (11.5-14.5); White Blood Cell Count 11.7 10^3/uL (4.8-10.8)
[2023-12-01 09:30] LABS: Mean Platelet Volume 10.3 fL (7.4-10.4); Platelet Count 102 10^3/uL (130-400)
[2023-12-01 09:31] LABS: Absolute Neutrophils -Man Diff 9.8 10^3/uL (1.4-6.5); Anisocytosis Slight; Band Neutrophils 2 % (0-3); Lymphocytes 14 % (20-51); Monocytes 2 % (2-9); Normal RBC Morphology No; Ovalocytes Slight; Platelets Checked Yes; Segmented Neutrophils 82 % (42-75); Total Cells Counted 100
[2023-12-01 09:35] LABS: ALT (SGPT) 14 U/L (0-50); AST (SGOT) 16 U/L (17-59); Albumin 4.2 g/dl (3.5-5.0); Alkaline Phosphatase 118 U/L (38-126); Blood Urea Nitrogen 23 mg/dl (9-20); Calcium 7.5 mg/dl (8.4-10.2); Carbon Dioxide 21 mmol/L (22-30); Chloride 99 mmol/L (98-107); Glucose 271 mg/dl (70-99); Magnesium 1.5 mg/dl (1.6-2.3); Phosphorus 5.1 mg/dl (2.5-4.5); Potassium 4.3 mmol/L (3.5-5.1); Sodium 134 mmol/L (135-145); Total Bilirubin 1.4 mg/dl (0.2-1.3); Total Protein 6.8 g/dl (6.3-8.2); eGFR > 60.00
== END ==
LOC: REG 07:34
PROVIDERS: ATTENDING PHYSICIAN Internal Medicine Hematology & Oncology; FAMILY PHYSICIAN Family Medicine
DX: C34.11 Malignant neoplasm of upper lobe, right bronchus or lung (principal)
CPT/HCPCS: 36415; 80053; 83735; 84100; 85025

== ENCOUNTER → 2023-12-08 07:00 | Outpatient (REF) | payer BC, MEDICARE, SELFPAY ==
[2023-12-08 09:21] LABS: Hemoglobin 8.5 g/dL (13.0-18.0); Mean Corpuscular Hgb 26.5 pg (27.0-31.0); Mean Corpuscular Volume 77.9 fL (80.0-94.0); Mean Platelet Volume 10.7 fL (7.4-10.4); Platelet Count 58 10^3/uL (130-400); Red Blood Cell Count 3.21 10^6/uL (4.70-6.10); Red Cell Dist. Width 19.9 % (11.5-14.5); White Blood Cell Count 11.8 10^3/uL (4.8-10.8)
[2023-12-08 09:26] LABS: ALT (SGPT) 16 U/L (0-50); AST (SGOT) 20 U/L (17-59); Albumin 4.1 g/dl (3.5-5.0); Alkaline Phosphatase 101 U/L (38-126); Blood Urea Nitrogen 19 mg/dl (9-20); Calcium 7.9 mg/dl (8.4-10.2); Carbon Dioxide 24 mmol/L (22-30); Chloride 97 mmol/L (98-107); Glucose 221 mg/dl (70-99); Magnesium 1.5 mg/dl (1.6-2.3); Phosphorus 5.5 mg/dl (2.5-4.5); Potassium 4.5 mmol/L (3.5-5.1); Sodium 134 mmol/L (135-145); Total Bilirubin 0.5 mg/dl (0.2-1.3); Total Protein 6.7 g/dl (6.3-8.2); eGFR > 60.00
[2023-12-08 10:55] LABS: Absolute Neutrophils -Man Diff 8.7 10^3/uL (1.4-6.5); Anisocytosis 1+; Band Neutrophils 8 % (0-3); Lymphocytes 19 % (20-51); Metamyelocytes 3 % (-); Monocytes 1 % (2-9); Myelocytes 3 % (-); Normal RBC Morphology No; Platelets Checked Yes; Segmented Neutrophils 66 % (42-75)
[2023-12-08 10:56] LABS: Hypochromasia Slight; Ovalocytes 1+; Total Cells Counted 100
== END ==
LOC: RAD 07:00
PROVIDERS: ATTENDING PHYSICIAN Internal Medicine Hematology & Oncology; FAMILY PHYSICIAN Family Medicine; REFERRING PHYSICIAN Internal Medicine Hematology & Oncology
DX: C34.11 Malignant neoplasm of upper lobe, right bronchus or lung (principal); E83.51 Hypocalcemia
CPT/HCPCS: 36415; 71260; 74177; 80053; 83735; 84100; 85025; Q9967

== ENCOUNTER → 2023-12-15 10:33 | Outpatient (REF) | payer BC, MEDICARE, SELFPAY ==
[2023-12-15 11:48] LABS: Hematocrit 26.6 % (39.0-52.0); Hemoglobin 8.8 g/dL (13.0-18.0); Mean Corp Hgb Conc. 33.1 g/dL (33.0-37.0); Mean Corpuscular Volume 81.6 fL (80.0-94.0); Mean Platelet Volume 9.6 fL (7.4-10.4); Platelet Count 402 10^3/uL (130-400); Red Blood Cell Count 3.26 10^6/uL (4.70-6.10); Red Cell Dist. Width 22.8 % (11.5-14.5); White Blood Cell Count 13.6 10^3/uL (4.8-10.8)
[2023-12-15 12:07] LABS: % Eosinophils 0.1 % (0-6); % Lymphocytes 8.6 % (20.5-51.1); % Monocytes 10.2 % (1.7-9.3); % Neutrophils 73.1 % (42.2-75.2); Absolute Basophils 0.1 10^3/uL (0-0.2); Absolute Lymphocytes 1.2 10^3/uL (1.2-3.4); Absolute Monocytes 1.4 10^3/uL (0.1-0.6); Nucleated Red Blood Cells % 1.8 % (-)
[2023-12-15 12:19] LABS: ALT (SGPT) 16 U/L (0-50); AST (SGOT) 18 U/L (17-59); Albumin 4.3 g/dl (3.5-5.0); Alkaline Phosphatase 92 U/L (38-126); Blood Urea Nitrogen 25 mg/dl (9-20); Calcium 8.6 mg/dl (8.4-10.2); Carbon Dioxide 24 mmol/L (22-30); Chloride 98 mmol/L (98-107); Glucose 247 mg/dl (70-99); Magnesium 1.8 mg/dl (1.6-2.3); Phosphorus 5.5 mg/dl (2.5-4.5); Potassium 4.8 mmol/L (3.5-5.1); Sodium 134 mmol/L (135-145); Total Bilirubin 0.8 mg/dl (0.2-1.3); Total Protein 6.9 g/dl (6.3-8.2); eGFR > 60.00
== END ==
LOC: REG 10:33
PROVIDERS: ATTENDING PHYSICIAN Internal Medicine Hematology & Oncology; FAMILY PHYSICIAN Family Medicine
DX: C34.11 Malignant neoplasm of upper lobe, right bronchus or lung (principal)
CPT/HCPCS: 36415; 80053; 83735; 84100; 85025

== ENCOUNTER → 2023-12-23 09:25 | Outpatient (REF) | payer BC, MEDICARE, SELFPAY ==
[2023-12-23 10:23] LABS: Hematocrit 25.4 % (39.0-52.0); Hemoglobin 8.6 g/dL (13.0-18.0); Mean Corp Hgb Conc. 33.9 g/dL (33.0-37.0); Mean Corpuscular Hgb 28.8 pg (27.0-31.0); Mean Corpuscular Volume 84.9 fL (80.0-94.0); Mean Platelet Volume 9.7 fL (7.4-10.4); Platelet Count 246 10^3/uL (130-400); Red Blood Cell Count 2.99 10^6/uL (4.70-6.10); Red Cell Dist. Width 23.7 % (11.5-14.5); White Blood Cell Count 12.8 10^3/uL (4.8-10.8)
[2023-12-23 10:43] LABS: % Basophils 0.5 % (0-2); % Eosinophils 0.1 % (0-6); % Immature Granulocytes 0.9 % (0-0.5); % Lymphocytes 5.3 % (20.5-51.1); % Neutrophils 91.2 % (42.2-75.2); Absolute Basophils 0.1 10^3/uL (0-0.2); Absolute Immature Granulocytes 0.1 10^3/uL (0-0.05); Absolute Lymphocytes 0.7 10^3/uL (1.2-3.4); Absolute Monocytes 0.3 10^3/uL (0.1-0.6); Absolute Neutrophils 11.7 10^3/uL (1.4-6.5); Nucleated Red Blood Cells % 0 % (-)
[2023-12-23 14:10] LABS: ALT (SGPT) 16 U/L (0-50); AST (SGOT) 17 U/L (17-59); Albumin 4.2 g/dl (3.5-5.0); Alkaline Phosphatase 113 U/L (38-126); Blood Urea Nitrogen 31 mg/dl (9-20); Calcium 8.1 mg/dl (8.4-10.2); Carbon Dioxide 18 mmol/L (22-30); Chloride 100 mmol/L (98-107); Glucose 269 mg/dl (70-99); Magnesium 1.5 mg/dl (1.6-2.3); Phosphorus 5.3 mg/dl (2.5-4.5); Potassium 4.5 mmol/L (3.5-5.1); Sodium 132 mmol/L (135-145); Total Bilirubin 1.3 mg/dl (0.2-1.3); Total Protein 6.8 g/dl (6.3-8.2); eGFR > 60.00
== END ==
LOC: REG 09:25
PROVIDERS: ATTENDING PHYSICIAN Internal Medicine Hematology & Oncology; FAMILY PHYSICIAN Family Medicine
DX: C34.11 Malignant neoplasm of upper lobe, right bronchus or lung (principal)
CPT/HCPCS: 36415; 80053; 83735; 84100; 85025

== ENCOUNTER → 2023-12-30 13:39 | Outpatient (REF) | payer BC, SELFPAY ==
[2023-12-30 14:37] LABS: Hematocrit 21.3 % (39.0-52.0); Hemoglobin 7.2 g/dL (13.0-18.0); Mean Corp Hgb Conc. 33.8 g/dL (33.0-37.0); Mean Corpuscular Hgb 28.6 pg (27.0-31.0); Mean Corpuscular Volume 84.5 fL (80.0-94.0); Mean Platelet Volume 10.1 fL (7.4-10.4); Platelet Count 81 10^3/uL (130-400); Red Blood Cell Count 2.52 10^6/uL (4.70-6.10); Red Cell Dist. Width 24.6 % (11.5-14.5); White Blood Cell Count 32.5 10^3/uL (4.8-10.8)
[2023-12-30 15:04] LABS: Myelocytes 4 % (-)
[2023-12-30 15:05] LABS: Anisocytosis 2+; Normal RBC Morphology No; Platelets Checked Yes
[2023-12-30 15:06] LABS: Ovalocytes 1+; Tear Drop Red Blood Cells Occasional
[2023-12-30 15:08] LABS: Acanthocytes Occasional
[2023-12-30 15:33] LABS: ALT (SGPT) 16 U/L (0-50); AST (SGOT) 21 U/L (17-59); Albumin 4.2 g/dl (3.5-5.0); Alkaline Phosphatase 117 U/L (38-126); Blood Urea Nitrogen 21 mg/dl (9-20); Calcium 7.9 mg/dl (8.4-10.2); Carbon Dioxide 23 mmol/L (22-30); Chloride 97 mmol/L (98-107); Glucose 351 mg/dl (70-99); Magnesium 1.7 mg/dl (1.6-2.3); Phosphorus 5.7 mg/dl (2.5-4.5); Potassium 4.4 mmol/L (3.5-5.1); Sodium 131 mmol/L (135-145); Total Bilirubin 0.5 mg/dl (0.2-1.3); Total Protein 6.6 g/dl (6.3-8.2); eGFR > 60.00
[2023-12-31 07:47] LABS: Band Neutrophils 4 % (0-3); Lymphocytes 5 % (20-51); Monocytes 7 % (2-9); Segmented Neutrophils 76 % (42-75)
[2023-12-31 07:48] LABS: Metamyelocytes 4 % (-); Total Cells Counted 100
== END ==
LOC: REG 13:39
PROVIDERS: ATTENDING PHYSICIAN Internal Medicine Hematology & Oncology; FAMILY PHYSICIAN Family Medicine
DX: C34.11 Malignant neoplasm of upper lobe, right bronchus or lung (principal)
CPT/HCPCS: 36415; 80053; 83735; 84100; 85025

== ENCOUNTER → 2024-01-05 08:08 | Outpatient (REF) | payer BC, SELFPAY ==
[2024-01-05 09:48] LABS: Hematocrit 24.4 % (39.0-52.0); Mean Corp Hgb Conc. 32.8 g/dL (33.0-37.0); Mean Corpuscular Hgb 30.2 pg (27.0-31.0); Mean Corpuscular Volume 92.1 fL (80.0-94.0); Mean Platelet Volume 9.7 fL (7.4-10.4); Platelet Count 280 10^3/uL (130-400); Red Blood Cell Count 2.65 10^6/uL (4.70-6.10); Red Cell Dist. Width 27.5 % (11.5-14.5)
[2024-01-05 10:18] LABS: ALT (SGPT) 15 U/L (0-50); AST (SGOT) 18 U/L (17-59); Albumin 4.3 g/dl (3.5-5.0); Alkaline Phosphatase 97 U/L (38-126); Blood Urea Nitrogen 22 mg/dl (9-20); Calcium 9.1 mg/dl (8.4-10.2); Carbon Dioxide 23 mmol/L (22-30); Chloride 99 mmol/L (98-107); Glucose 270 mg/dl (70-99); Magnesium 1.9 mg/dl (1.6-2.3); Phosphorus 5.7 mg/dl (2.5-4.5); Potassium 4.7 mmol/L (3.5-5.1); Sodium 136 mmol/L (135-145); Total Bilirubin 0.9 mg/dl (0.2-1.3); Total Protein 6.7 g/dl (6.3-8.2); eGFR > 60.00
[2024-01-05 10:35] LABS: Band Neutrophils 8 % (0-3); Lymphocytes 5 % (20-51); Metamyelocytes 5 % (-); Monocytes 4 % (2-9); Myelocytes 1 % (-); Normal RBC Morphology No; Nucleated Red Blood Cells 2 (-); Platelets Checked Yes; Segmented Neutrophils 77 % (42-75)
[2024-01-05 10:36] LABS: Acanthocytes 1+; Anisocytosis 1+; Hypochromasia 1+; Ovalocytes 1+; Polychromasia 1+; Total Cells Counted 100
== END ==
LOC: REG 08:08
PROVIDERS: ATTENDING PHYSICIAN Internal Medicine Hematology & Oncology; FAMILY PHYSICIAN Family Medicine
DX: C34.11 Malignant neoplasm of upper lobe, right bronchus or lung (principal)
CPT/HCPCS: 36415; 80053; 83735; 84100; 85025

== ENCOUNTER → 2024-01-20 09:08 | Outpatient (REF) | payer BC, SELFPAY | LOC: PAVMRI 09:08 | PROVIDERS: ATTENDING PHYSICIAN Radiology Radiation Oncology; FAMILY PHYSICIAN Family Medicine | DX: C34.11 Malignant neoplasm of upper lobe, right bronchus or lung (principal) | CPT/HCPCS: 70553; A9575 ==

== ENCOUNTER → 2024-01-28 11:58 | Outpatient (REF) | payer BC, SELFPAY ==
[2024-01-28 12:44] LABS: % Basophils 0.9 % (0-2); % Eosinophils 0.4 % (0-6); % Immature Granulocytes 2.5 % (0-0.5); % Lymphocytes 9.9 % (20.5-51.1); % Monocytes 7.6 % (1.7-9.3); % Neutrophils 78.7 % (42.2-75.2); Absolute Basophils 0.1 10^3/uL (0-0.2); Absolute Immature Granulocytes 0.3 10^3/uL (0-0.05); Absolute Lymphocytes 1.1 10^3/uL (1.2-3.4); Absolute Monocytes 0.9 10^3/uL (0.1-0.6); Absolute Neutrophils 8.8 10^3/uL (1.4-6.5); Hematocrit 24.6 % (39.0-52.0); Hemoglobin 8.1 g/dL (13.0-18.0); Mean Corp Hgb Conc. 32.9 g/dL (33.0-37.0); Mean Corpuscular Hgb 33.6 pg (27.0-31.0); Mean Corpuscular Volume 102.1 fL (80.0-94.0); Mean Platelet Volume 9.1 fL (7.4-10.4); Nucleated Red Blood Cells % 0.4 % (-); Platelet Count 306 10^3/uL (130-400); Red Blood Cell Count 2.41 10^6/uL (4.70-6.10); Red Cell Dist. Width 26.5 % (11.5-14.5); White Blood Cell Count 11.2 10^3/uL (4.8-10.8)
[2024-01-28 13:36] LABS: ALT (SGPT) 15 U/L (0-50); AST (SGOT) 18 U/L (17-59); Albumin 4.3 g/dl (3.5-5.0); Alkaline Phosphatase 71 U/L (38-126); Blood Urea Nitrogen 26 mg/dl (9-20); Calcium 7.5 mg/dl (8.4-10.2); Carbon Dioxide 19 mmol/L (22-30); Chloride 101 mmol/L (98-107); Glucose 166 mg/dl (70-99); Magnesium 1.6 mg/dl (1.6-2.3); Phosphorus 4.6 mg/dl (2.5-4.5); Potassium 4.3 mmol/L (3.5-5.1); Sodium 138 mmol/L (135-145); Total Bilirubin 0.8 mg/dl (0.2-1.3); Total Protein 6.9 g/dl (6.3-8.2); eGFR > 60.00
== END ==
LOC: REG 11:58
PROVIDERS: ATTENDING PHYSICIAN Internal Medicine Hematology & Oncology; FAMILY PHYSICIAN Family Medicine
DX: C34.11 Malignant neoplasm of upper lobe, right bronchus or lung (principal)
CPT/HCPCS: 36415; 80053; 83735; 84100; 85025

== ENCOUNTER → 2024-02-26 11:21 | Outpatient (REF) | payer BC, SELFPAY ==
[2024-02-26 12:00] LABS: % Eosinophils 4.3 % (0-6); % Immature Granulocytes 0.2 % (0-0.5); % Lymphocytes 17.6 % (20.5-51.1); % Monocytes 7.8 % (1.7-9.3); % Neutrophils 69.1 % (42.2-75.2); Absolute Basophils 0.1 10^3/uL (0-0.2); Absolute Eosinophils 0.2 10^3/uL (0-0.7); Absolute Lymphocytes 0.9 10^3/uL (1.2-3.4); Absolute Monocytes 0.4 10^3/uL (0.1-0.6); Absolute Neutrophils 3.6 10^3/uL (1.4-6.5); Hematocrit 30.4 % (39.0-52.0); Hemoglobin 9.9 g/dL (13.0-18.0); Mean Corp Hgb Conc. 32.6 g/dL (33.0-37.0); Mean Corpuscular Hgb 32.6 pg (27.0-31.0); Mean Platelet Volume 9.2 fL (7.4-10.4); Nucleated Red Blood Cells % 0 % (-); Platelet Count 208 10^3/uL (130-400); Red Blood Cell Count 3.04 10^6/uL (4.70-6.10); White Blood Cell Count 5.2 10^3/uL (4.8-10.8)
[2024-02-26 12:31] LABS: ALT (SGPT) 16 U/L (0-50); AST (SGOT) 16 U/L (17-59); Albumin 4.2 g/dl (3.5-5.0); Alkaline Phosphatase 51 U/L (38-126); Blood Urea Nitrogen 20 mg/dl (9-20); Calcium 8.5 mg/dl (8.4-10.2); Carbon Dioxide 24 mmol/L (22-30); Chloride 102 mmol/L (98-107); Glucose 237 mg/dl (70-99); Potassium 4.6 mmol/L (3.5-5.1); Sodium 139 mmol/L (135-145); Total Bilirubin 0.6 mg/dl (0.2-1.3); Total Protein 6.8 g/dl (6.3-8.2); eGFR > 60.00
[2024-02-26 13:24] LABS: TSH 3.28 uIU/ml (0.47-4.68)
== END ==
LOC: REG 11:21
PROVIDERS: ATTENDING PHYSICIAN Internal Medicine Hematology & Oncology; FAMILY PHYSICIAN Family Medicine
DX: C34.11 Malignant neoplasm of upper lobe, right bronchus or lung (principal); E83.51 Hypocalcemia
CPT/HCPCS: 36415; 80053; 84443; 85025

== ENCOUNTER → 2024-03-25 13:53 | Outpatient (REF) | payer BC, SELFPAY ==
[2024-03-25 14:44] LABS: % Basophils 1.1 % (0-2); % Eosinophils 3.5 % (0-6); % Immature Granulocytes 1.1 % (0-0.5); % Lymphocytes 19.8 % (20.5-51.1); % Monocytes 9.3 % (1.7-9.3); % Neutrophils 65.2 % (42.2-75.2); Absolute Basophils 0.1 10^3/uL (0-0.2); Absolute Eosinophils 0.2 10^3/uL (0-0.7); Absolute Immature Granulocytes 0.1 10^3/uL (0-0.05); Absolute Lymphocytes 0.9 10^3/uL (1.2-3.4); Absolute Monocytes 0.4 10^3/uL (0.1-0.6); Hematocrit 31.1 % (39.0-52.0); Hemoglobin 10.3 g/dL (13.0-18.0); Mean Corp Hgb Conc. 33.1 g/dL (33.0-37.0); Mean Corpuscular Volume 93.7 fL (80.0-94.0); Mean Platelet Volume 9.7 fL (7.4-10.4); Nucleated Red Blood Cells % 0 % (-); Platelet Count 205 10^3/uL (130-400); Red Blood Cell Count 3.32 10^6/uL (4.70-6.10); Red Cell Dist. Width 14.8 % (11.5-14.5); White Blood Cell Count 4.5 10^3/uL (4.8-10.8)
[2024-03-25 15:13] LABS: ALT (SGPT) 16 U/L (0-50); AST (SGOT) 17 U/L (17-59); Albumin 4.1 g/dl (3.5-5.0); Alkaline Phosphatase 70 U/L (38-126); Blood Urea Nitrogen 22 mg/dl (9-20); Calcium 7.9 mg/dl (8.4-10.2); Carbon Dioxide 22 mmol/L (22-30); Chloride 101 mmol/L (98-107); Glucose 278 mg/dl (70-99); Potassium 4.4 mmol/L (3.5-5.1); Sodium 138 mmol/L (135-145); Total Bilirubin 0.6 mg/dl (0.2-1.3); Total Protein 6.8 g/dl (6.3-8.2); eGFR > 60.00
[2024-03-25 15:44] LABS: TSH 3.42 uIU/ml (0.47-4.68)
== END ==
LOC: REG 13:53
PROVIDERS: ATTENDING PHYSICIAN Internal Medicine Hematology & Oncology; FAMILY PHYSICIAN Family Medicine
DX: C34.11 Malignant neoplasm of upper lobe, right bronchus or lung (principal); E83.51 Hypocalcemia
CPT/HCPCS: 36415; 80053; 84443; 85025

== ENCOUNTER → 2024-04-22 09:14 | Outpatient (REF) | payer BC, SELFPAY ==
[2024-04-22 09:23] LABS: % Basophils 0.8 % (0-2); % Eosinophils 2.2 % (0-6); % Immature Granulocytes 0.7 % (0-0.5); % Lymphocytes 11.6 % (20.5-51.1); % Monocytes 7.5 % (1.7-9.3); % Neutrophils 77.2 % (42.2-75.2); Absolute Basophils 0.1 10^3/uL (0-0.2); Absolute Eosinophils 0.2 10^3/uL (0-0.7); Absolute Immature Granulocytes 0.1 10^3/uL (0-0.05); Absolute Lymphocytes 0.8 10^3/uL (1.2-3.4); Absolute Monocytes 0.5 10^3/uL (0.1-0.6); Absolute Neutrophils 5.5 10^3/uL (1.4-6.5); Hematocrit 34.3 % (39.0-52.0); Hemoglobin 10.9 g/dL (13.0-18.0); Mean Corp Hgb Conc. 31.8 g/dL (33.0-37.0); Mean Corpuscular Hgb 28.7 pg (27.0-31.0); Mean Corpuscular Volume 90.3 fL (80.0-94.0); Mean Platelet Volume 9.6 fL (7.4-10.4); Nucleated Red Blood Cells % 0 % (-); Platelet Count 233 10^3/uL (130-400); Red Cell Dist. Width 15.6 % (11.5-14.5); White Blood Cell Count 7.2 10^3/uL (4.8-10.8)
[2024-04-22 09:54] LABS: ALT (SGPT) 15 U/L (0-50); AST (SGOT) 17 U/L (17-59); Albumin 4.5 g/dl (3.5-5.0); Alkaline Phosphatase 66 U/L (38-126); Blood Urea Nitrogen 33 mg/dl (9-20); Calcium 8.8 mg/dl (8.4-10.2); Carbon Dioxide 22 mmol/L (22-30); Chloride 101 mmol/L (98-107); Glucose 207 mg/dl (70-99); Potassium 4.8 mmol/L (3.5-5.1); Total Bilirubin 0.9 mg/dl (0.2-1.3); Total Protein 7.4 g/dl (6.3-8.2); eGFR > 60.00
[2024-04-22 09:59] LABS: Sodium 137 mmol/L (135-145)
[2024-04-22 10:22] LABS: TSH 3.79 uIU/ml (0.47-4.68)
== END ==
LOC: PAVMRI 09:14
PROVIDERS: ATTENDING PHYSICIAN Radiology Radiation Oncology; FAMILY PHYSICIAN Family Medicine; REFERRING PHYSICIAN Internal Medicine Hematology & Oncology
DX: C34.11 Malignant neoplasm of upper lobe, right bronchus or lung (principal); E83.51 Hypocalcemia
CPT/HCPCS: 36415; 70553; 80053; 84443; 85025; A9575

== ENCOUNTER → 2024-04-23 07:16 | Outpatient (REF) | payer BC, SELFPAY | LOC: RAD 07:16 | PROVIDERS: ATTENDING PHYSICIAN Radiology Radiation Oncology; FAMILY PHYSICIAN Family Medicine | DX: C34.11 Malignant neoplasm of upper lobe, right bronchus or lung (principal) | CPT/HCPCS: 71260; Q9967 ==

== ENCOUNTER → 2024-05-20 12:02 | Outpatient (REF) | payer BC, SELFPAY ==
[2024-05-20 13:52] LABS: % Basophils 0.9 % (0-2); % Eosinophils 2.5 % (0-6); % Immature Granulocytes 0.5 % (0-0.5); % Lymphocytes 18.3 % (20.5-51.1); % Monocytes 6.5 % (1.7-9.3); % Neutrophils 71.3 % (42.2-75.2); Absolute Basophils 0.1 10^3/uL (0-0.2); Absolute Eosinophils 0.2 10^3/uL (0-0.7); Absolute Lymphocytes 1.2 10^3/uL (1.2-3.4); Absolute Monocytes 0.4 10^3/uL (0.1-0.6); Absolute Neutrophils 4.7 10^3/uL (1.4-6.5); Hemoglobin 11.2 g/dL (13.0-18.0); Mean Corpuscular Hgb 28.1 pg (27.0-31.0); Mean Corpuscular Volume 87.9 fL (80.0-94.0); Mean Platelet Volume 9.3 fL (7.4-10.4); Nucleated Red Blood Cells % 0 % (-); Platelet Count 235 10^3/uL (130-400); Red Blood Cell Count 3.98 10^6/uL (4.70-6.10); Red Cell Dist. Width 15.8 % (11.5-14.5); White Blood Cell Count 6.5 10^3/uL (4.8-10.8)
[2024-05-20 14:20] LABS: Glycohemoglobin (HgbA1c) 9.3 % (4.0-5.6)
[2024-05-20 15:49] LABS: ALT (SGPT) 14 U/L (0-50); AST (SGOT) 17 U/L (17-59); Albumin 4.2 g/dl (3.5-5.0); Alkaline Phosphatase 70 U/L (38-126); Blood Urea Nitrogen 15 mg/dl (9-20); Calcium 7.9 mg/dl (8.4-10.2); Carbon Dioxide 22 mmol/L (22-30); Chloride 102 mmol/L (98-107); Glucose 126 mg/dl (70-99); HDL Cholesterol 30 mg/dl; LDL Cholesterol, Calculated 30 mg/dl; Potassium 4.4 mmol/L (3.5-5.1); Sodium 136 mmol/L (135-145); Total Bilirubin 1.2 mg/dl (0.2-1.3); Total Cholesterol 105 mg/dl (50-199); Triglyceride 226 mg/dl (10-149); Very Low Density Lipoprotein 45 mg/dl (0-30); eGFR > 60.00
[2024-05-20 16:08] LABS: TSH 3.29 uIU/ml (0.47-4.68)
== END ==
LOC: REG 12:02
PROVIDERS: ATTENDING PHYSICIAN Internal Medicine Hematology & Oncology; FAMILY PHYSICIAN Family Medicine
DX: C34.11 Malignant neoplasm of upper lobe, right bronchus or lung (principal); E83.51 Hypocalcemia; E78.5 Hyperlipidemia, unspecified; E11.65 Type 2 diabetes mellitus with hyperglycemia
CPT/HCPCS: 36415; 80053; 80061; 83036; 84443; 85025

== ENCOUNTER → 2024-06-15 12:43 | Outpatient (REF) | payer BC, SELFPAY ==
[2024-06-15 13:27] LABS: % Basophils 0.9 % (0-2); % Eosinophils 2.6 % (0-6); % Lymphocytes 20.7 % (20.5-51.1); % Monocytes 8.7 % (1.7-9.3); % Neutrophils 66.1 % (42.2-75.2); Absolute Basophils 0.1 10^3/uL (0-0.2); Absolute Eosinophils 0.2 10^3/uL (0-0.7); Absolute Immature Granulocytes 0.1 10^3/uL (0-0.05); Absolute Lymphocytes 1.2 10^3/uL (1.2-3.4); Absolute Monocytes 0.5 10^3/uL (0.1-0.6); Absolute Neutrophils 3.9 10^3/uL (1.4-6.5); Hematocrit 31.3 % (39.0-52.0); Hemoglobin 10.3 g/dL (13.0-18.0); Mean Corp Hgb Conc. 32.9 g/dL (33.0-37.0); Mean Corpuscular Hgb 28.8 pg (27.0-31.0); Mean Corpuscular Volume 87.4 fL (80.0-94.0); Nucleated Red Blood Cells % 0 % (-); Platelet Count 206 10^3/uL (130-400); Red Blood Cell Count 3.58 10^6/uL (4.70-6.10); Red Cell Dist. Width 15.9 % (11.5-14.5); White Blood Cell Count 5.9 10^3/uL (4.8-10.8)
[2024-06-15 13:45] LABS: ALT (SGPT) 14 U/L (0-50); AST (SGOT) 16 U/L (17-59); Albumin 4.1 g/dl (3.5-5.0); Alkaline Phosphatase 62 U/L (38-126); Blood Urea Nitrogen 25 mg/dl (9-20); Calcium 7.9 mg/dl (8.4-10.2); Carbon Dioxide 22 mmol/L (22-30); Chloride 100 mmol/L (98-107); Glucose 251 mg/dl (70-99); Potassium 4.4 mmol/L (3.5-5.1); Sodium 135 mmol/L (135-145); Total Protein 6.7 g/dl (6.3-8.2); eGFR > 60.00
[2024-06-15 14:13] LABS: TSH 2.55 uIU/ml (0.47-4.68)
== END ==
LOC: REG 12:43
PROVIDERS: ATTENDING PHYSICIAN Internal Medicine Hematology & Oncology; FAMILY PHYSICIAN Family Medicine
DX: C34.11 Malignant neoplasm of upper lobe, right bronchus or lung (principal); E83.51 Hypocalcemia
CPT/HCPCS: 36415; 80053; 84443; 85025

== ENCOUNTER → 2024-07-15 14:56 | Outpatient (REF) | payer BC, SELFPAY ==
[2024-07-15 16:17] LABS: % Basophils 0.7 % (0-2); % Eosinophils 3.3 % (0-6); % Immature Granulocytes 0.4 % (0-0.5); % Lymphocytes 23.8 % (20.5-51.1); % Monocytes 6.9 % (1.7-9.3); % Neutrophils 64.9 % (42.2-75.2); Absolute Eosinophils 0.2 10^3/uL (0-0.7); Absolute Lymphocytes 1.3 10^3/uL (1.2-3.4); Absolute Monocytes 0.4 10^3/uL (0.1-0.6); Absolute Neutrophils 3.6 10^3/uL (1.4-6.5); Hematocrit 32.2 % (39.0-52.0); Hemoglobin 10.6 g/dL (13.0-18.0); Mean Corp Hgb Conc. 32.9 g/dL (33.0-37.0); Mean Corpuscular Hgb 28.7 pg (27.0-31.0); Mean Corpuscular Volume 87.3 fL (80.0-94.0); Nucleated Red Blood Cells % 0 % (-); Platelet Count 194 10^3/uL (130-400); Red Blood Cell Count 3.69 10^6/uL (4.70-6.10); Red Cell Dist. Width 15.7 % (11.5-14.5); White Blood Cell Count 5.5 10^3/uL (4.8-10.8)
[2024-07-15 16:31] LABS: ALT (SGPT) 15 U/L (0-50); AST (SGOT) 16 U/L (17-59); Albumin 3.8 g/dl (3.5-5.0); Alkaline Phosphatase 72 U/L (38-126); Blood Urea Nitrogen 21 mg/dl (9-20); Calcium 8.1 mg/dl (8.4-10.2); Carbon Dioxide 25 mmol/L (22-30); Chloride 102 mmol/L (98-107); Glucose 260 mg/dl (70-99); Potassium 4.1 mmol/L (3.5-5.1); Sodium 137 mmol/L (135-145); Total Bilirubin 0.9 mg/dl (0.2-1.3); Total Protein 6.5 g/dl (6.3-8.2); eGFR > 60.00
[2024-07-15 17:01] LABS: TSH 3.62 uIU/ml (0.47-4.68)
== END ==
LOC: REG 14:56
PROVIDERS: ATTENDING PHYSICIAN Internal Medicine Hematology & Oncology; FAMILY PHYSICIAN Family Medicine
DX: C34.11 Malignant neoplasm of upper lobe, right bronchus or lung (principal); E83.51 Hypocalcemia
CPT/HCPCS: 36415; 80053; 84443; 85025

== ENCOUNTER → 2024-07-29 07:18 | Outpatient (REF) | payer BC, SELFPAY | LOC: PAVMRI 07:18 | PROVIDERS: ATTENDING PHYSICIAN Radiology Radiation Oncology; FAMILY PHYSICIAN Family Medicine | DX: C34.11 Malignant neoplasm of upper lobe, right bronchus or lung (principal) | CPT/HCPCS: 70553; A9575 ==

== ENCOUNTER → 2024-08-12 15:49 | Outpatient (REF) | payer BC, SELFPAY ==
[2024-08-12 16:12] LABS: % Basophils 0.8 % (0-2); % Eosinophils 2.6 % (0-6); % Immature Granulocytes 0.6 % (0-0.5); % Lymphocytes 18.8 % (20.5-51.1); % Monocytes 9.6 % (1.7-9.3); % Neutrophils 67.6 % (42.2-75.2); Absolute Basophils 0.1 10^3/uL (0-0.2); Absolute Eosinophils 0.2 10^3/uL (0-0.7); Absolute Lymphocytes 1.2 10^3/uL (1.2-3.4); Absolute Monocytes 0.6 10^3/uL (0.1-0.6); Absolute Neutrophils 4.4 10^3/uL (1.4-6.5); Hemoglobin 10.6 g/dL (13.0-18.0); Mean Corp Hgb Conc. 33.1 g/dL (33.0-37.0); Mean Corpuscular Hgb 29.1 pg (27.0-31.0); Mean Corpuscular Volume 87.9 fL (80.0-94.0); Mean Platelet Volume 9.6 fL (7.4-10.4); Nucleated Red Blood Cells % 0 % (-); Platelet Count 212 10^3/uL (130-400); Red Blood Cell Count 3.64 10^6/uL (4.70-6.10); Red Cell Dist. Width 15.3 % (11.5-14.5); White Blood Cell Count 6.6 10^3/uL (4.8-10.8)
[2024-08-12 16:35] LABS: ALT (SGPT) 14 U/L (0-50); AST (SGOT) 15 U/L (17-59); Alkaline Phosphatase 65 U/L (38-126); Blood Urea Nitrogen 24 mg/dl (9-20); Calcium 8.4 mg/dl (8.4-10.2); Carbon Dioxide 26 mmol/L (22-30); Chloride 107 mmol/L (98-107); Glucose 262 mg/dl (70-99); Potassium 4.5 mmol/L (3.5-5.1); Sodium 141 mmol/L (135-145); Total Bilirubin 0.8 mg/dl (0.2-1.3); Total Protein 6.7 g/dl (6.3-8.2); eGFR > 60.00
[2024-08-12 17:04] LABS: TSH 3.13 uIU/ml (0.47-4.68)
== END ==
LOC: REG 15:49
PROVIDERS: ATTENDING PHYSICIAN Internal Medicine Hematology & Oncology; FAMILY PHYSICIAN Family Medicine
DX: C34.11 Malignant neoplasm of upper lobe, right bronchus or lung (principal); E83.51 Hypocalcemia
CPT/HCPCS: 36415; 80053; 84443; 85025

== ENCOUNTER → 2024-09-09 10:37 | Outpatient (REF) | payer BC, SELFPAY ==
[2024-09-09 11:44] LABS: % Basophils 0.9 % (0-2); % Eosinophils 1.9 % (0-6); % Immature Granulocytes 0.6 % (0-0.5); % Lymphocytes 19.1 % (20.5-51.1); % Monocytes 6.9 % (1.7-9.3); % Neutrophils 70.6 % (42.2-75.2); Absolute Basophils 0.1 10^3/uL (0-0.2); Absolute Eosinophils 0.1 10^3/uL (0-0.7); Absolute Lymphocytes 1.3 10^3/uL (1.2-3.4); Absolute Monocytes 0.5 10^3/uL (0.1-0.6); Absolute Neutrophils 4.8 10^3/uL (1.4-6.5); Hematocrit 33.6 % (39.0-52.0); Hemoglobin 11.2 g/dL (13.0-18.0); Mean Corp Hgb Conc. 33.3 g/dL (33.0-37.0); Mean Corpuscular Hgb 28.6 pg (27.0-31.0); Mean Corpuscular Volume 85.9 fL (80.0-94.0); Mean Platelet Volume 9.5 fL (7.4-10.4); Nucleated Red Blood Cells % 0 % (-); Platelet Count 219 10^3/uL (130-400); Red Blood Cell Count 3.91 10^6/uL (4.70-6.10); Red Cell Dist. Width 15.6 % (11.5-14.5); White Blood Cell Count 6.8 10^3/uL (4.8-10.8)
[2024-09-09 12:21] LABS: ALT (SGPT) 14 U/L (0-50); AST (SGOT) 15 U/L (17-59); Albumin 4.5 g/dl (3.5-5.0); Alkaline Phosphatase 73 U/L (38-126); Blood Urea Nitrogen 22 mg/dl (9-20); Calcium 8.5 mg/dl (8.4-10.2); Carbon Dioxide 22 mmol/L (22-30); Chloride 103 mmol/L (98-107); Glucose 254 mg/dl (70-99); Potassium 4.6 mmol/L (3.5-5.1); Sodium 138 mmol/L (135-145); Total Bilirubin 1.2 mg/dl (0.2-1.3); Total Protein 7.1 g/dl (6.3-8.2); eGFR > 60.00
[2024-09-09 12:52] LABS: TSH 3.13 uIU/ml (0.47-4.68)
== END ==
LOC: REG 10:37
PROVIDERS: ATTENDING PHYSICIAN Internal Medicine Hematology & Oncology; FAMILY PHYSICIAN Family Medicine
DX: C34.11 Malignant neoplasm of upper lobe, right bronchus or lung (principal); E83.51 Hypocalcemia
CPT/HCPCS: 36415; 80053; 84443; 85025

== ENCOUNTER → 2024-10-08 10:03 | Outpatient (REF) | payer BC, SELFPAY ==
[2024-10-08 10:42] LABS: % Basophils 0.8 % (0-2); % Eosinophils 2.9 % (0-6); % Lymphocytes 17.7 % (20.5-51.1); % Monocytes 7.3 % (1.7-9.3); % Neutrophils 70.3 % (42.2-75.2); Absolute Basophils 0.1 10^3/uL (0-0.2); Absolute Eosinophils 0.2 10^3/uL (0-0.7); Absolute Immature Granulocytes 0.1 10^3/uL (0-0.05); Absolute Lymphocytes 1.1 10^3/uL (1.2-3.4); Absolute Monocytes 0.5 10^3/uL (0.1-0.6); Absolute Neutrophils 4.4 10^3/uL (1.4-6.5); Hematocrit 32.7 % (39.0-52.0); Hemoglobin 10.4 g/dL (13.0-18.0); Mean Corp Hgb Conc. 31.8 g/dL (33.0-37.0); Mean Corpuscular Hgb 27.5 pg (27.0-31.0); Mean Corpuscular Volume 86.5 fL (80.0-94.0); Mean Platelet Volume 9.6 fL (7.4-10.4); Nucleated Red Blood Cells % 0 % (-); Platelet Count 200 10^3/uL (130-400); Red Blood Cell Count 3.78 10^6/uL (4.70-6.10); Red Cell Dist. Width 16.2 % (11.5-14.5); White Blood Cell Count 6.3 10^3/uL (4.8-10.8)
[2024-10-08 11:08] LABS: ALT (SGPT) 16 U/L (0-50); AST (SGOT) 17 U/L (17-59); Albumin 4.2 g/dl (3.5-5.0); Alkaline Phosphatase 59 U/L (38-126); Blood Urea Nitrogen 16 mg/dl (9-20); Calcium 7.7 mg/dl (8.4-10.2); Carbon Dioxide 22 mmol/L (22-30); Chloride 108 mmol/L (98-107); Glucose 229 mg/dl (70-99); Potassium 3.9 mmol/L (3.5-5.1); Sodium 140 mmol/L (135-145); Total Bilirubin 0.8 mg/dl (0.2-1.3); Total Protein 6.8 g/dl (6.3-8.2); eGFR > 60.00
[2024-10-08 11:38] LABS: TSH 6.67 uIU/ml (0.47-4.68)
== END ==
LOC: REG 10:03
PROVIDERS: ATTENDING PHYSICIAN Internal Medicine Hematology & Oncology; FAMILY PHYSICIAN Family Medicine
DX: C34.11 Malignant neoplasm of upper lobe, right bronchus or lung (principal); E83.51 Hypocalcemia
CPT/HCPCS: 36415; 80053; 84443; 85025

== ENCOUNTER → 2024-11-05 09:56 | Outpatient (REF) | payer BC, SELFPAY ==
[2024-11-05 10:44] LABS: % Basophils 0.8 % (0-2); % Eosinophils 1.5 % (0-6); % Immature Granulocytes 0.7 % (0-0.5); % Lymphocytes 18.8 % (20.5-51.1); % Neutrophils 71.2 % (42.2-75.2); Absolute Basophils 0.1 10^3/uL (0-0.2); Absolute Eosinophils 0.1 10^3/uL (0-0.7); Absolute Immature Granulocytes 0.1 10^3/uL (0-0.05); Absolute Lymphocytes 1.4 10^3/uL (1.2-3.4); Absolute Monocytes 0.5 10^3/uL (0.1-0.6); Absolute Neutrophils 5.3 10^3/uL (1.4-6.5); Hematocrit 33.1 % (39.0-52.0); Hemoglobin 10.5 g/dL (13.0-18.0); Mean Corp Hgb Conc. 31.7 g/dL (33.0-37.0); Mean Corpuscular Hgb 27.2 pg (27.0-31.0); Mean Corpuscular Volume 85.8 fL (80.0-94.0); Mean Platelet Volume 9.5 fL (7.4-10.4); Nucleated Red Blood Cells % 0 % (-); Platelet Count 247 10^3/uL (130-400); Red Blood Cell Count 3.86 10^6/uL (4.70-6.10); Red Cell Dist. Width 15.9 % (11.5-14.5); White Blood Cell Count 7.4 10^3/uL (4.8-10.8)
[2024-11-05 11:37] LABS: ALT (SGPT) 16 U/L (0-50); AST (SGOT) 15 U/L (17-59); Albumin 4.3 g/dl (3.5-5.0); Alkaline Phosphatase 59 U/L (38-126); Blood Urea Nitrogen 18 mg/dl (9-20); Calcium 9.1 mg/dl (8.4-10.2); Carbon Dioxide 26 mmol/L (22-30); Chloride 106 mmol/L (98-107); Glucose 177 mg/dl (70-99); Potassium 4.2 mmol/L (3.5-5.1); Sodium 141 mmol/L (135-145); Total Bilirubin 0.9 mg/dl (0.2-1.3); Total Protein 7.4 g/dl (6.3-8.2); eGFR > 60.00
[2024-11-05 12:07] LABS: TSH 5.53 uIU/ml (0.47-4.68)
== END ==
LOC: REG 09:56
PROVIDERS: ATTENDING PHYSICIAN Internal Medicine Hematology & Oncology; FAMILY PHYSICIAN Family Medicine
DX: C34.11 Malignant neoplasm of upper lobe, right bronchus or lung (principal); E83.51 Hypocalcemia
CPT/HCPCS: 36415; 80053; 84443; 85025

== ENCOUNTER → 2024-11-17 07:30 | Outpatient (REF) | payer BC, SELFPAY | LOC: PAVMRI 07:30 | PROVIDERS: ATTENDING PHYSICIAN Radiology Radiation Oncology; FAMILY PHYSICIAN Family Medicine | DX: C34.11 Malignant neoplasm of upper lobe, right bronchus or lung (principal) | CPT/HCPCS: 70553; A9575 ==

== ENCOUNTER → 2024-12-02 14:33 | Outpatient (REF) | payer BC, SELFPAY ==
[2024-12-02 15:09] LABS: Hematocrit 34.2 % (39.0-52.0); Hemoglobin 11.0 g/dL (13.0-18.0); Mean Corp Hgb Conc. 32.2 g/dL (33.0-37.0); Mean Corpuscular Volume 84.9 fL (80.0-94.0); Nucleated Red Blood Cells % 0 % (-); Platelet Count 262 10^3/uL (130-400); Red Cell Dist. Width 16.1 % (11.5-14.5)
[2024-12-02 15:51] LABS: ALT (SGPT) 15 U/L (0-50); AST (SGOT) 15 U/L (17-59); Albumin 4.5 g/dl (3.5-5.0); Alkaline Phosphatase 66 U/L (38-126); Blood Urea Nitrogen 18 mg/dl (9-20); Calcium 8.1 mg/dl (8.4-10.2); Carbon Dioxide 21 mmol/L (22-30); Chloride 103 mmol/L (98-107); Glucose 307 mg/dl (70-99); Potassium 4.2 mmol/L (3.5-5.1); Sodium 136 mmol/L (135-145); Total Protein 7.5 g/dl (6.3-8.2); eGFR > 60.00
[2024-12-02 16:21] LABS: TSH 6.08 uIU/ml (0.47-4.68)
== END ==
LOC: REG 14:33
PROVIDERS: ATTENDING PHYSICIAN Internal Medicine Hematology & Oncology; FAMILY PHYSICIAN Family Medicine
DX: C34.11 Malignant neoplasm of upper lobe, right bronchus or lung (principal); E83.51 Hypocalcemia
CPT/HCPCS: 36415; 80053; 84443; 85025

== ENCOUNTER 2024-12-03 16:13 | Outpatient (RCR) | payer BC, SELFPAY ==
[2024-12-03 14:35] LABS: Iron 66 ug/dl (49-181)
[2024-12-03 14:44] LABS: Total Iron Binding Capacity 402 ug/dl (261-462)
[2024-12-03 15:12] LABS: Ferritin 8.9 ng/ml (17.9-464.0)
[2024-12-03 15:43] LABS: Folate 19.7 ng/ml (2.76-20); Vitamin B12 392 pg/ml (239-931)
== END 2024-12-16 23:59 | disposition home or self-care (01) ==
LOC: OID 16:13
PROVIDERS: ATTENDING PHYSICIAN Internal Medicine Hematology & Oncology
DX: C34.11 Malignant neoplasm of upper lobe, right bronchus or lung (principal); E83.51 Hypocalcemia
CPT/HCPCS: 82607; 82728; 82746; 83540; 83550

== ENCOUNTER → 2024-12-30 11:14 | Outpatient (REF) | payer BC, SELFPAY ==
[2024-12-30 12:46] LABS: Hematocrit 31.0 % (39.0-52.0); Hemoglobin 9.9 g/dL (13.0-18.0); Mean Corp Hgb Conc. 31.9 g/dL (33.0-37.0); Mean Corpuscular Volume 84.9 fL (80.0-94.0); Nucleated Red Blood Cells % 0 % (-); Platelet Count 210 10^3/uL (130-400); Red Cell Dist. Width 17.2 % (11.5-14.5)
[2024-12-30 13:41] LABS: ALT (SGPT) 15 U/L (0-50); AST (SGOT) 17 U/L (17-59); Albumin 4.1 g/dl (3.5-5.0); Alkaline Phosphatase 69 U/L (38-126); Blood Urea Nitrogen 21 mg/dl (9-20); Calcium 8.0 mg/dl (8.4-10.2); Carbon Dioxide 21 mmol/L (22-30); Chloride 104 mmol/L (98-107); Glucose 240 mg/dl (70-99); Potassium 4.4 mmol/L (3.5-5.1); Sodium 135 mmol/L (135-145); Total Protein 6.8 g/dl (6.3-8.2); eGFR > 60.00
[2024-12-30 14:08] LABS: TSH 4.27 uIU/ml (0.47-4.68)
== END ==
LOC: REG 11:14
PROVIDERS: ATTENDING PHYSICIAN Internal Medicine Hematology & Oncology
DX: C34.11 Malignant neoplasm of upper lobe, right bronchus or lung (principal); E83.51 Hypocalcemia
CPT/HCPCS: 36415; 80053; 84443; 85025

== ENCOUNTER → 2025-01-25 10:22 | Outpatient (REF) | payer BC, SELFPAY ==
[2025-01-25 12:04] LABS: Hematocrit 35.6 % (39.0-52.0); Hemoglobin 11.2 g/dL (13.0-18.0); Mean Corp Hgb Conc. 31.5 g/dL (33.0-37.0); Mean Corpuscular Volume 88.1 fL (80.0-94.0); Nucleated Red Blood Cells % 0 % (-); Platelet Count 227 10^3/uL (130-400); Red Cell Dist. Width 19.4 % (11.5-14.5)
[2025-01-25 15:32] LABS: ALT (SGPT) 20 U/L (0-50); AST (SGOT) 19 U/L (17-59); Albumin 4.5 g/dl (3.5-5.0); Alkaline Phosphatase 71 U/L (38-126); Blood Urea Nitrogen 23 mg/dl (9-20); Calcium 8.2 mg/dl (8.4-10.2); Carbon Dioxide 21 mmol/L (22-30); Chloride 104 mmol/L (98-107); Glucose 398 mg/dl (70-99); Potassium 4.7 mmol/L (3.5-5.1); Sodium 136 mmol/L (135-145); Total Protein 7.4 g/dl (6.3-8.2); eGFR > 60.00
[2025-01-25 16:23] LABS: TSH 7.46 uIU/ml (0.47-4.68)
== END ==
LOC: REG 10:22
PROVIDERS: ATTENDING PHYSICIAN Internal Medicine Hematology & Oncology; FAMILY PHYSICIAN Family Medicine
DX: C34.11 Malignant neoplasm of upper lobe, right bronchus or lung (principal); E83.51 Hypocalcemia; D50.9 Iron deficiency anemia, unspecified
CPT/HCPCS: 36415; 80053; 84443; 85025

== ENCOUNTER → 2025-02-14 07:43 | Outpatient (REF) | payer BC, SELFPAY ==
[2025-02-14 09:20] LABS: Glycohemoglobin (HgbA1c) 9.2 % (4.0-5.6)
[2025-02-14 09:22] LABS: Microalb - Urine Creatinine 57.400 mg/dl
[2025-02-14 09:26] LABS: Microalbumin, Random Urine 1.2 mg/dl (0.6-1.7)
[2025-02-14 09:43] LABS: ALT (SGPT) 18 U/L (0-50); AST (SGOT) 16 U/L (17-59); Albumin 4.6 g/dl (3.5-5.0); Alkaline Phosphatase 53 U/L (38-126); Blood Urea Nitrogen 24 mg/dl (9-20); Calcium 9.0 mg/dl (8.4-10.2); Carbon Dioxide 22 mmol/L (22-30); Chloride 103 mmol/L (98-107); Glucose 205 mg/dl (70-99); HDL Cholesterol 28 mg/dl; LDL Cholesterol, Calculated 40 mg/dl; Potassium 4.3 mmol/L (3.5-5.1); Sodium 136 mmol/L (135-145); Total Protein 7.6 g/dl (6.3-8.2); Very Low Density Lipoprotein 57 mg/dl (0-30); eGFR > 60.00
[2025-02-14 10:24] LABS: TSH 5.44 uIU/ml (0.47-4.68)
[2025-02-14 10:30] LABS: Vitamin D, 25-OH*** 60.8 ng/mL (30-80)
== END ==
LOC: REG 07:43
PROVIDERS: ATTENDING PHYSICIAN Family Medicine
DX: E78.5 Hyperlipidemia, unspecified (principal); E11.65 Type 2 diabetes mellitus with hyperglycemia; E55.9 Vitamin D deficiency, unspecified; Z12.5 Encounter for screening for malignant neoplasm of prostate; E03.9 Hypothyroidism, unspecified
CPT/HCPCS: 36415; 80053; 80061; 82043; 82306; 82570; 83036; 84443

== ENCOUNTER → 2025-02-16 11:12 | Outpatient (REF) | payer OTHER, SELFPAY | LOC: PAVMRI 11:12 | PROVIDERS: ATTENDING PHYSICIAN Radiology Radiation Oncology; FAMILY PHYSICIAN Family Medicine | DX: C34.11 Malignant neoplasm of upper lobe, right bronchus or lung (principal) | CPT/HCPCS: 70553; A9575 ==

== ENCOUNTER → 2025-03-02 06:57 | Outpatient (REF) | payer OTHER, SELFPAY ==
[2025-03-02 07:42] LABS: Hematocrit 38.7 % (39.0-52.0); Hemoglobin 12.6 g/dL (13.0-18.0); Mean Corp Hgb Conc. 32.6 g/dL (33.0-37.0); Mean Corpuscular Volume 90.0 fL (80.0-94.0); Nucleated Red Blood Cells % 0 % (-); Platelet Count 216 10^3/uL (130-400); Red Cell Dist. Width 17.3 % (11.5-14.5)
[2025-03-02 08:09] LABS: ALT (SGPT) 20 U/L (0-50); AST (SGOT) 19 U/L (17-59); Albumin 4.5 g/dl (3.5-5.0); Alkaline Phosphatase 59 U/L (38-126); Blood Urea Nitrogen 27 mg/dl (9-20); Calcium 9.2 mg/dl (8.4-10.2); Carbon Dioxide 22 mmol/L (22-30); Chloride 102 mmol/L (98-107); Glucose 149 mg/dl (70-99); Iron 90 ug/dl (49-181); Potassium 4.3 mmol/L (3.5-5.1); Sodium 136 mmol/L (135-145); Total Protein 7.4 g/dl (6.3-8.2); eGFR > 60.00
[2025-03-02 08:19] LABS: Total Iron Binding Capacity 366 ug/dl (261-462)
[2025-03-02 08:40] LABS: TSH 3.56 uIU/ml (0.47-4.68)
== END ==
LOC: REG 06:57
PROVIDERS: ATTENDING PHYSICIAN Family Medicine; OTHER PHYSICIAN Internal Medicine Hematology & Oncology; OTHER PHYSICIAN Nurse Practitioner Adult Health
DX: C34.11 Malignant neoplasm of upper lobe, right bronchus or lung (principal); E83.51 Hypocalcemia; D50.9 Iron deficiency anemia, unspecified; E03.9 Hypothyroidism, unspecified
CPT/HCPCS: 36415; 80053; 83540; 83550; 84439; 84443; 85025

== ENCOUNTER → 2025-03-02 07:47 | Outpatient (REF) | payer OTHER, SELFPAY | LOC: PET 07:47 | PROVIDERS: ATTENDING PHYSICIAN Internal Medicine Hematology & Oncology | DX: C34.11 Malignant neoplasm of upper lobe, right bronchus or lung (principal) | CPT/HCPCS: 78815; A9552 ==

== ENCOUNTER → 2025-04-18 12:19 | Outpatient (REF) | payer OTHER, SELFPAY ==
[2025-04-18 12:40] VITALS: BP 134/81; BP_SYST 90
[2025-04-18 13:37] VITALS: BP 133/77; BP_SYST 78
== END ==
LOC: RADI 12:19
PROVIDERS: ATTENDING PHYSICIAN Nurse Practitioner Adult Health; FAMILY PHYSICIAN Family Medicine
DX: Z45.2 Encounter for adjustment and management of vascular access device (principal); C34.11 Malignant neoplasm of upper lobe, right bronchus or lung
CPT/HCPCS: 36590; 77001